=== PATIENT | male | born 1960 | race Caucasian/White ===

== ENCOUNTER 2020-09-16 07:14 | Emergency (ER) | payer BC, OTHER ==
--- NOTE | 2020-09-16 07:19 | EDM.PDOC ---
ED HPI GENERAL MEDICAL PROBLEM - General Stated Complaint: RT SHOULDER/ARM INJURY Time Seen by Provider: 09/16/20 07:16 Source of Information: Reports: Patient History Limitations: Reports: No Limitations - History of Present Illness INITIAL COMMENTS - FREE TEXT/NARRATIVE: 60-year-old male past medical history hypertension, alcohol abuse presents status post fall yesterday. Patient states that he was at work and he fell hitting his right sided ribs and right shoulder. He did hit his head but denies loss of consciousness. He was ambulatory after the fall. He has had no nausea or vomiting. Denies headache. He notes pain in his right anterior shoulder with limited range of motion secondary to pain. He also notes pain in his right-sided ribs which is worse with inspiration. He denies shortness of breath. No chest pain. He notes that he has not been taking his antihypertensives or other medications right shoulder Pain Score (Numeric/FACES): 7 - Related Data Allergies Allergy/AdvReac Type Severity Reaction Status Date / Time No Known Allergies Allergy Verified 09/16/20 07:36 Home Meds: Home Meds Aspirin [Aspirin EC] 81 mg PO DAILY 03/23/20 [History] Losartan [Cozaar] 100 mg PO DAILY 03/23/20 [History] Metoprolol Succinate [Toprol XL] 25 mg PO DAILY 03/23/20 [History] Nitroglycerin [Nitrostat] 0.4 mg SL ASDIRECTED 03/23/20 [History] Ondansetron [Zofran ODT] 4 mg PO Q6HR PRN 03/23/20 [History] amLODIPine [Norvasc] 5 mg PO DAILY 03/23/20 [History] Folic Acid 1 mg PO BEDTIME #60 tab 03/30/20 [Rx] Thiamine [Vitamin B-1] 100 mg PO BEDTIME #60 tab 03/30/20 [Rx] atorvaSTATin [Lipitor] 80 mg PO DAILY #0 03/30/20 [Rx] Past Medical History HEENT History: Reports: Impaired Vision, Other (See Below) Other HEENT History: wears glasses Cardiovascular History: Reports: High Cholesterol, Hypertension - Past Surgical History HEENT Surgical History: Reports: None Cardiovascular Surgical History: Reports: None Social & Family History - Family History Family Medical History: No Pertinent Family History - Caffeine Use Caffeine Use: Reports: Coffee, Soda ED ROS GENERAL - Review of Systems Review Of Systems: Comprehensive ROS is negative, except as noted in HPI. ED EXAM, GENERAL - Physical Exam Exam: See Below Exam Limited By: No Limitations General Appearance: Alert, WD/WN, No Apparent Distress Eye Exam: Bilateral Eye: EOMI, PERRL Throat/Mouth: Normal Voice, No Airway Compromise Head: Atraumatic, Normocephalic Neck: Normal Inspection, Non-Tender Respiratory/Chest: No Respiratory Distress, Lungs Clear, Normal Breath Sounds, No Accessory Muscle Use, Other (TTP of right anterolateral ribs) Cardiovascular: Normal Peripheral Pulses, Regular Rate, Rhythm Back Exam: Normal Inspection. 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) Neurological: Alert, Normal Gait Psychiatric: Normal Affect, Normal Mood Skin Exam: Warm, Dry, Intact, Normal Color Course - Vital Signs Last Recorded V/S: Last Vital Signs Temp 98 F 09/16/20 07:33 Pulse 93 09/16/20 09:02 Resp 16 09/16/20 07:33 BP 149/98 H 09/16/20 09:02 Pulse Ox 98 09/16/20 09:02 - Orders/Labs/Meds Orders: Active Orders 24 hr Category Date Time Status DME for Discharge [COMM] Stat Oth 09/16/20 09:05 Ordered Meds: Medications Discontinued Medications Generic Name Dose Route Start Last Admin Trade Name Elioq PRN Reason Stop Dose Admin Acetaminophen 1,000 mg 09/16/20 07:32 09/16/20 07:41 Acetaminophen 500 Mg Tab PO 09/16/20 07:33 1,000 mg ONETIME ONE Administration Ketorolac Tromethamine 30 mg 09/16/20 07:32 09/16/20 07:42 Ketorolac 30 Mg/Ml Sdv IM 09/16/20 07:33 30 mg ONETIME ONE Administration Losartan Potassium 100 mg 09/16/20 07:33 09/16/20 07:45 Losartan 50 Mg Tab PO 09/16/20 07:34 100 mg ONETIME ONE Administration Metoprolol Succinate 25 mg 09/16/20 07:37 09/16/20 07:46 Metoprolol Succinate 25 Mg Tab.Er PO 09/16/20 07:38 25 mg ONETIME ONE Administration - Re-Assessments/Exams Free Text/Narrative Re-Assessment/Exam: 09/16/20 07:35 We will get right-sided rib x-rays, will get right shoulder x-ray. Will treat symptomatically with Toradol and Tylenol. Explained to patient that if we do not see any abnormality on x-ray imaging he may need an MRI of the shoulder. Will give losartan and metoprolol as patient hasn't been on home meds and is hypertensive and mildly tachycardic to low 100s. 09/16/20 09:06 X-ray imaging is unremarkable. Will discharge with sling for comfort and analgesia. Will refer to orthopedic. Departure - Departure Time of Disposition: 09:06 Disposition: Home, Self-Care 01 Condition: Good Clinical Impression: Shoulder injury Qualifiers: Encounter type: initial encounter Laterality: right Qualified Code(s): S49.91XA - Unspecified injury of right shoulder and upper arm, initial encounter Rib contusion Qualifiers: Encounter type: initial encounter Laterality: right Qualified Code(s): S20.211A - Contusion of right front wall of thorax, initial encounter - Discharge Information Instructions: How To Use a Sling, [id number] Referrals: Tobin Vu MD [Primary Care Provider] - Additional Instructions: Your x-ray imaging is unremarkable for fracture or dislocation. It is possible that you could have torn a ligament or rotator cuff muscle in the shoulder. If your symptoms are not improving in the next week then I would follow-up with an orthopedic physician. Information is provided below. I have sent pain medicine to your pharmacy. [facility] [address], [address] [place] [address] The following information is given to patients seen in the emergency department who are being discharged to home. This information is to outline your options for follow-up care. We provide all patients seen in our emergency department with a follow-up referral. The need for follow-up, as well as the timing and circumstances, are variable depending upon the specifics of your emergency department visit. If you don't have a primary care physician on staff, we will provide you with a referral. We always advise you to contact your personal physician following an emergency department visit to inform them of the circumstance of the visit and for follow-up with them and/or the need for any referrals to a consulting specialist. The emergency department will also refer you to a specialist when appropriate. This referral assures that you have the opportunity for follow-up care with a specialist. All of these measure are taken in an effort to provide you with optimal care, which includes your follow-up. Under all circumstances we always encourage you to contact your private physician who remains a resource for coordinating your care. When calling for follow-up care, please make the office aware that this follow-up is from your recent emergency room visit. If for any reason you are refused follow-up, please contact the [facility] Emergency Department at and asked to speak to the emergency department charge nurse. Please follow up with your primary care physician. If you do not have a primary care physician, see below: [facility] [address] [place] [id number] [facility] [address] [place] [id number] [facility] [address] [place] [id number] Sepsis Event Note (ED) - Focused Exam Vital Signs: Vital Signs Temp Pulse Pulse Resp BP BP Pulse Ox 09/16/20 09:02 93 149/98 H 98 09/16/20 08:18 98 178/96 H 97 09/16/20 07:49 98 09/16/20 07:46 106 H 179/108 H 09/16/20 07:45 179/108 H 09/16/20 07:33 98 F 106 H 16 171/111 H 99 - My Orders Last 24 Hours: My Active Orders 09/16/20 09:05 DME for Discharge [COMM] Stat - Assessment/Plan Last 24 Hours: My Active Orders 09/16/20 09:05 DME for Discharge [COMM] Stat
[2020-09-16] MEDS ORDERED: Ketorolac 30 MG/ML SDV IM ONE (07:32)
[2020-09-16] MEDS ORDERED: Acetaminophen 500 MG Tab PO ONE (07:32)
[2020-09-16] MEDS ORDERED: Losartan 50 MG Tab PO ONE (07:33)
[2020-09-16] MEDS ORDERED: Metoprolol Succinate 25 MG Tab.ER PO ONE (07:37)
--- NOTE | 2020-09-16 09:03 | CR ---
INDICATION: Right shoulder injury. Fell yesterday. TECHNIQUE: Three views of the right shoulder. COMPARISON: Today`s rib x-rays. FINDINGS: No fracture or dislocation. IMPRESSION: Negative right shoulder. Dictated by Claudio Foster MD @ 09/16/2020 9:02:[address] Claudio Foster @ Sep 16 2020 9:02AM
--- NOTE | 2020-09-16 09:03 | CR ---
INDICATION: Fell yesterday. Right rib and shoulder pain. INDICATION: Left rib pain. TECHNIQUE: PA image of the chest and two views of both sets of ribs, 5 images. COMPARISON: None. FINDINGS: No rib fracture evident. Lungs and pleural spaces clear. Heart size and pulmonary vasculature within normal limits. IMPRESSION: Negative ribs. Dictated by Claudio Foster MD @ 09/16/2020 9:01:[address] Claudio Foster @ Sep 16 2020 9:01AM
== END 2020-09-16 09:18 | disposition home or self-care (01) ==
LOC: MW.ED 07:14
DX: S20.211A Contusion of right front wall of thorax, initial encounter (principal); S49.91XA Unspecified injury of right shoulder and upper arm, initial encounter; E78.00 Pure hypercholesterolemia, unspecified; I10 Essential (primary) hypertension; Z79.899 Other long term (current) drug therapy; W18.09XA Striking against other object with subsequent fall, initial encounter; Y92.009 Unspecified place in unspecified non-institutional (private) residence as the place of occurrence of the external cause
CPT/HCPCS: 71111; 73030; 96372; 99283; A9270; J1885

== ENCOUNTER 2020-10-05 10:59 | Emergency (ER) | payer SELFPAY ==
[2020-10-05] MEDS ORDERED: Sodium Chloride 0.9% 10 ML Syringe FLUSH PRN (11:08)
[2020-10-05] MEDS ORDERED: Sodium Chloride 0.9% 2.5 ML Syringe FLUSH PRN (11:08)
[2020-10-05] MEDS ORDERED: Sodium Chloride 0.9% 1,000 ML IV ONE (11:08)
[2020-10-05] MEDS ORDERED: Cefepime 2 GM in Sodium Chloride 0.9% 50 ML IV ONE (11:08)
[2020-10-05] MEDS ORDERED: Ibuprofen 600 MG Tab PO ONE (11:33)
[2020-10-05 11:59] LABS: BLOOD UREA NITROGEN,BUN 71 mg/dL (7.0-18.0); CARBON DIOXIDE,CO2 14.8 mmol/L (21.0-32.0); CHLORIDE,CL 100 mmol/L (98-107); GLUCOSE RANDOM 136 mg/dL (74-106); LIPASE 330 U/L (73-393); POTASSIUM,K 5.3 mmol/L (3.5-5.1); SODIUM,NA 142 mmol/L (136-148)
[2020-10-05] MEDS ORDERED: Cefepime 2 GM in Premix Bag 1 BAG IV ONE (12:00)
--- NOTE | 2020-10-05 12:38 | CT ---
INDICATION: Patient found down TECHNIQUE: Head CT without contrast. COMPARISON: March 23, 2020 FINDINGS: CSF spaces: Within normal limits for age. Brain parenchyma: There are nonspecific low attenuation white matter changes consistent with chronic microvascular disease. No sign of mass, hemorrhage, or midline shift. Skull base and calvarium: Patchy opacification of the bilateral maxillary sinuses. The mastoid air cells demonstrate no acute or significant findings. The visualized orbits are grossly unremarkable. No skull fractures. There is intracranial atherosclerosis. IMPRESSION: 1. No acute findings. 2. Nonspecific white matter disease, typical of chronic microvascular disease. Please note that all CT scans at this facility use dose modulation, iterative reconstruction, and/or weight-based dosing when appropriate to reduce radiation dose to as low as reasonably achievable. Dictated by Марина Rao MD @ 10/05/2020 12:36:[address] Марина Rao @ Oct 05 2020 12:36PM
--- NOTE | 2020-10-05 12:38 | CR ---
Indication: Decreased responsiveness Technique: Chest 1 view Comparison: September 16, 2020 Findings/Impression: Cardiovascular and mediastinum: Heart size and vasculature are normal in caliber and appearance. Mediastinum is within normal limits. Lungs and pleural space: Linear atelectasis in the right upper lung. No sign of infiltrate or mass. No sign of pleural effusion. No pneumothorax. Bones and soft tissues: No significant findings. Dictated by Марина Rao MD @ 10/05/2020 12:37:[address] Марина Rao @ Oct 05 2020 12:37PM
--- NOTE | 2020-10-05 12:42 | CT ---
INDICATION: Patient found down TECHNIQUE: CT cervical spine without contrast. COMPARISON: March 23, 2020 FINDINGS: Vertebral alignment: Alignment is normal. Vertebrae: There are no fractures or suspicious bony lesions. Discs and facet joints: There are moderate multilevel degenerative disc and facet changes. Extraspinal findings: Paraspinous soft tissues are unremarkable. IMPRESSION: 1. No sign of acute injury. 2. Multilevel degenerative spondylosis. Please note that all CT scans at this facility use dose modulation, iterative reconstruction, and/or weight-based dosing when appropriate to reduce radiation dose to as low as reasonably achievable. Dictated by Марина Rao MD @ 10/05/2020 12:41:[address] Марина Rao @ Oct 05 2020 12:41PM
[2020-10-05] MEDS ORDERED: Magnesium Sulfate (4.06 MEQ/ML) 5 GM/10 ML SDV IV STA (13:04)
[2020-10-05] MEDS ORDERED: Lactated Ringers 1,000 ML IV SCH (13:15)
[2020-10-05] MEDS ORDERED: Magnesium Sulfate/Water 2 GM/50 ML BAG IV ONE (13:15)
--- NOTE | 2020-10-05 13:42 | EDM.PDOC ---
ED HPI GENERAL MEDICAL PROBLEM - General Chief Complaint: Drug or Alcohol Abuse Stated Complaint: alcohol abuse Time Seen by Provider: 10/05/20 11:10 - History of Present Illness INITIAL COMMENTS - FREE TEXT/NARRATIVE: CHIEF COMPLAINT(S): Found down HISTORY OF PRESENT ILLNESS: This is a 60-year-old man with a past medical history of alcohol use disorder who presents to the emergency department as a medical resuscitation via EMS with a chief complaint of found down. Per EMS: The patient's landlord contacted EMS as the landlord found the patient lying facedown in his camper this morning. Is uncertain as to why he was on the ground but the patient denies any falling. Upon EMS arrival the patient was satting 92% therefore they did place oxygen on the patient and brought him to the emergency department. The patient currently denies any symptoms and does not remember falling. He states that he just laid down because he was not feeling well. He states that he did not have any preceding chest pain or shortness of breath. He states that he currently is not experiencing any chest pain, shortness of breath, cough, abdominal pain, nausea or vomiting. He denies any hematemesis, bilious emesis, melena or hematochezia. He denies any use of oral anticoagulation. He denies any head injury or loss of consciousness. He denies any blurry vision, double vision, loss of vision. REVIEW OF SYSTEMS: Constitutional: Denies fever, chills. Eyes: Denies eye pain Ears, Nose, Mouth, & Throat: Denies earache Cardiovascular: Denies chest pain Respiratory: Denies shortness of breath Gastrointestinal: Denies Nausea, vomiting, diarrhea, hematochezia. Genitourinary: Denies hematuria Skin:Denies a rash Neurological: Denies blurred vision, headache, numbness, tingling, weakness Psychiatric: Denies depression PAST MEDICAL HISTORY: As per history of present illness and as reviewed below otherwise noncontributory. SURGICAL HISTORY: As per history of present illness and as reviewed below otherwise noncontributory. SOCIAL HISTORY: As per history of present illness and as reviewed below otherwise noncontributory. FAMILY HISTORY: As per history of present illness and as reviewed below otherwise noncontributory. EXAMINATION OF ORGAN SYSTEMS/BODY AREAS: VITALS: Blood pressure is 146/105, heart rate 122, respiratory rate 20 with an oxygen saturation of 100% on 15 L nonrebreather. Rectal temperature was 40.7. GENERAL: This is a middle-aged man who appears pale and in moderate respiratory distress. HEAD: Normocephalic, atraumatic. EYES: EOMs intact. PERRL. No vertical or horizontal nystagmus. ENT. External ears WNL. Nares patent. Oropharynx is clear with no erythema or exudate. No uvular or tongue swelling. Dry mucous membranes. NECK: Supple, no masses. Trachea is midline. LUNGS: The patient is tachypneic however he is speaking in full sentences. There is no stridor, wheezing, rales, rhonchi. Clear lung sounds bilaterally. CARDIOVASCULAR: Tachycardic but regular. No murmurs, rubs, gallops. No edema. No JVD. Bilateral radial pulses palpable and equal. Bilateral posterior tibial pulses dopplerable. Capillary refill is prolonged in upper and lower extremities bilaterally greater than 4 seconds ABDOMEN: Soft, non-distended, non-tender. Bowel sounds present in all 4 quadrants. No rebound tenderness, guarding, or peritoneal signs. MUSCULOSKELETAL: No deformity. Patient is moving all 4 limbs spontaneously. NEUROLOGICAL: Alert and oriented x 3. No focal neurological deficits noted. SKIN: The patient has bruising located throughout his body which is especially prevalent on his bilateral knees, left lower extremity on the lateral side, right lower extremity and anterior abdominal wall. The patient skin is warm. No evidence of petechiae. No sacral decubitus ulcers. MEDICAL DECISION MAKING AND COURSE IN THE ED WITH INTERPRETATION/REVIEW OF DIAGNOSTIC STUDIES: This is a 60-year-old man who presents to the emergency department as a medical resuscitation via EMS with acute hypoxic respiratory failure who is tachycardic, febrile and hypoxic per EMS. Immediately upon entering the resuscitation room the patient was disrobed, placed on continuous cardiac monitoring, and IV access was established by nursing. Patient is able to speak thus displaying a patent airway, breath sounds are equal bilaterally, and patient has palpable pulses in bilateral upper extremities with dopplerable pulses in his bilateral lower extremities with some bruising. I do believe the patient is peripherally vasoconstricted likely secondary to sepsis, presumably pneumonia given the hypoxia. At this time we will obtain a septic work-up including CBC, CMP, lactic acid, urinalysis, chest x-ray. We will provide the patient with 1 L of normal saline bolus at this time, 600 mg of Motrin for f ever, and start the patient on cefepime and vancomycin after blood cultures. At this time the patient's blood pressure is normal I do not believe 30 cc/kg is indicated. We will reevaluate after lactic acid is resulted. In addition to this given the bruising will obtain fibrinogen, D-dimer, and coags to evaluate for possible DIC. We will obtain a CPK given the patient was found down to evaluate for rhabdomyolysis. Will obtain an ABG given the hypoxia. EKG was obtained which revealed sinus tachycardia without any peaked T waves or QRS widening. We will place the patient on threat monitoring analyst and pulse oximetry. desk monitor did reveal sinus tachycardia, pulse oximetry with good waveform was 100% via nonrebreather. Given the patient was found down we will obtain a CT head without contrast and a CT cervical spine. Laboratory: CBC reveals a leukocytosis of 14.03 with neutrophilic predominance without any segmented neutrophils, elevated hemoglobin at 18.5, hematocrit of 53.6, macrocytosis with an MCV of 103.1. There is thrombocytopenia at 129. CMP reveals hyperkalemia with a potassium of 5.3, metabolic acidosis with a bicarbonate of 14.8, acute renal failure with a BUN of 71 and a creatinine of 7.6, hyperglycemia at 136, hyperbilirubinemia at 1.2 and a transaminitis of 692 AST, 206 ALT likely secondary to rhabdomyolysis. CPK is elevated at 34,255. Lipase is normal. Troponin is positive at 0.722. UDS is negative. Serum alcohol is negative. D-dimer is elevated at 3.25. Fibrinogen is elevated at 498, INR is 0.98. AB.27//83/10 acute metabolic acidosis with appropriate respiratory compensation At this time the patient's lactate is not greater than 4 and his blood pressure continues to remain stable therefore no additional fluid boluses will be given. We will start the patient on lactated Ringer's at 125 an hour given the acute renal failure. We will place a Holguin catheter to evaluate for urine output. At this time the patient does have bruising with an elevated troponin, hypoxia with an elevated D-dimer differential does include pulmonary embolism, DIC. We did perform a bedside guaiac on the stool which was black and positive. At this time I do believe the patients elevated troponin is likely secondary to acute renal failure, rhabdomyolysis, and type II LA, and the benefits of anticoagulation at this time do not outweigh the risks. We will hold off on aspirin and heparin at this time. Holguin catheter was placed and approximately 10 cc of concentrated urine was obtained. Urinalysis was a clean catch and was negative for leukocyte esterase, negative for nitrites, and positive for blood. RBCs 0-2 interpretation: Myoglobinuria The radiological images were viewed by myself along with reading the report from the radiologist. Chest x-ray does not reveal any acute cardiopulmonary process. CT head without contrast does not reveal any acute intracranial abnormality. CT cervical spine does not reveal any acute fracture or dislocation. At this time it is uncertain as to the cause of the patient's sepsis differential also includes heat exhaustion given his temperature, rhabdomyolysis and dehydration. On reevaluation post fluid bolus, the patient's DP pulses were palpable, he was no longer pale, his heart rate improved to 109, respiratory rate was normal and we did wean the patient off oxygen to room air saturating 93 to 94%. Blood pressure continued to remain stable. I did discuss with the patient that given his acute renal failure, elevated troponin, and bleeding I would like to transfer him given that we do not have nephrology, gastroenterology, or cardiology. He was amenable to this plan. In addition he informed me that him and his friends were playing [employer] and crawling in the bushes and that is probably why he has the bruising. I contacted [facility] in [place] and spoke with Dr. Morales who accepted the patient for transfer. The patient will be transferred via ALS. Given the hyperkalemia I did repeat the patient's EKG. The patient did not have any signs of QRS widening or peaked T waves. Covid is negative DISPOSITION: The patient was transferred to [facility] in [place] in stable yet serious condition CONDITION: Serious PROCEDURES: Cardiac monitoring interpretation, pulse oximetry interpretation FINAL IMPRESSION(S)/DIAGNOSES: 1. Acute hypoxic respiratory failure secondary to unknown etiology, possible pulmonary embolism 2. Acute sepsis secondary to unknown source 3. Acute renal failure likely secondary to rhabdomyolysis 4. Acute elevated troponin, suspect type II demand ischemia versus renal failure versus rhabdomyolysis 5. Acute lactic acidosis likely secondary #1, #2. 6. Acute melena, suspect GI bleed 7. Acute possible DIC Critical Care Procedure Note Authorized and performed by: David Watters M.D. Critical Care Time: 90 minutes Due to a high probability of clinically significant, life threatening deterioration, the patient required my highest level of preparedness to intervene emergently and I personally spent this critical care time directly and personally managing the patient. This critical care time included obtaining a history, examining the patient, pulse oximetry; ordering and review of studies; arranging urgent treatment with development of a management plan; evaluation of a patients reponse to treatment; frequent assessment; and discussions with other providers. This critical care time was performed to assess and manage the high probability of imminent, life threatening deterioration that could result in multiorgan failure. It was exclusive of separate billable procedures and treating other patients. Please see MDM section and rest of the note for further information on patient assessment and treatment. Please see MDM section and rest of the note for further information on patient assessment and treatment. - Related Data Allergies Allergy/AdvReac Type Severity Reaction Status Date / Time No Known Allergies Allergy Verified 10/05/20 11:30 Home Meds: Home Meds Aspirin [Aspirin EC] 81 mg PO DAILY 03/23/20 [History] Losartan [Cozaar] 100 mg PO DAILY 03/23/20 [History] Metoprolol Succinate [Toprol XL] 25 mg PO DAILY 03/23/20 [History] Nitroglycerin [Nitrostat] 0.4 mg SL ASDIRECTED 03/23/20 [History] Ondansetron [Zofran ODT] 4 mg PO Q6HR PRN 03/23/20 [History] amLODIPine [Norvasc] 5 mg PO DAILY 03/23/20 [History] Folic Acid 1 mg PO BEDTIME #60 tab 03/30/20 [Rx] Thiamine [Vitamin B-1] 100 mg PO BEDTIME #60 tab 03/30/20 [Rx] atorvaSTATin [Lipitor] 80 mg PO DAILY #0 03/30/20 [Rx] Ibuprofen [Motrin] 600 mg PO Q6H PRN #28 tab 09/16/20 [Rx] Past Medical History HEENT History: Reports: Impaired Vision, Other (See Below) Other HEENT History: wears glasses Cardiovascular History: Reports: High Cholesterol, Hypertension - Past Surgical History HEENT Surgical History: Reports: None Cardiovascular Surgical History: Reports: None Social & Family History - Family History Family Medical History: No Pertinent Family History - Caffeine Use Caffeine Use: Reports: Coffee, Soda - Recreational Drug Use Recreational Drug Use: No ED ROS GENERAL - Review of Systems Review Of Systems: See Below ED EXAM, GENERAL - Physical Exam Exam: See Below Course - Vital Signs Last Recorded V/S: Last Vital Signs Temp 38.7 C H 10/05/20 12:57 Pulse 100 10/05/20 13:09 Resp BP 136/94 H 10/05/20 13:09 Pulse Ox 94 L 10/05/20 13:09 - Orders/Labs/Meds Orders: Active Orders 24 hr Category Date Time Status Blood Pressure Mgt: Sepsis [RC] [id number] Care 10/05/20 11:08 Active Cardiac Monitoring [RC] CONTINUOUS Care 10/05/20 11:08 Active EKG 12 Lead [EKG Documentation Completion] [RC] STAT Care 10/05/20 12:28 Active EKG Documentation Completion [RC] STAT Care 10/05/20 11:08 Active Insert Holguin Catheter [Insert Urinary Catheter] [OM.PC] Care 10/05/20 12:15 Ordered Q24H Oxygen Therapy, ED [RC] STAT Care 10/05/20 11:08 Active Urinary Catheter Assessment [RC] ASDIRECTED Care 10/05/20 12:12 Active CULTURE BLOOD [BC] Stat Lab 10/05/20 11:17 Received CULTURE BLOOD [BC] Stat Lab 10/05/20 11:38 Received HAPTOGLOBIN [REF] Stat Lab 10/05/20 11:17 Received REFLEX LACTIC ACID YES OR NO [CHEM] Routine Lab 10/05/20 11:49 Received Lactated Ringers [Ringers, Lactated] 1,000 ml Med 10/05/20 13:15 Active IV ASDIRECTED Magnesium Sulfate/Water [Magnesium Sulfate in Water 2 Med 10/05/20 13:15 Active GM/50 ML] 2 gm in 50 ml IV ONETIME Sodium Chloride 0.9% [Saline Flush] Med 10/05/20 11:08 Active 10 ml FLUSH ASDIRECTED PRN Sodium Chloride 0.9% [Saline Flush] Med 10/05/20 11:08 Active 2.5 ml FLUSH ASDIRECTED PRN Blood Culture x2 Reflex Set [OM.PC] Stat Oth 10/05/20 11:08 Ordered Saline Lock Insert [OM.PC] Stat Oth 10/05/20 11:08 Ordered Medication Orders Lactated Ringer's (Ringers, Lactated) 1,000 mls @ 125 mls/hr IV ASDIRECTED VERONICA Last Admin: 10/05/20 13:21 Dose: 125 mls/hr Documented by: ARELY Magnesium Sulfate (Magnesium Sulfate In Water 2 Gm/50 Ml) 2 gm in 50 mls @ 50 mls/hr IV ONETIME ONE Stop: 10/05/20 14:14 Last Admin: 10/05/20 13:21 Dose: 50 mls/hr Documented by: ARELY Sodium Chloride (Sodium Chloride 0.9% 10 Ml Syringe) 10 ml FLUSH ASDIRECTED PRN PRN Reason: Keep Vein Open Last Admin: 10/05/20 12:21 Dose: 10 ml Documented by: ROCK Sodium Chloride (Sodium Chloride 0.9% 2.5 Ml Syringe) 2.5 ml FLUSH ASDIRECTED PRN PRN Reason: Keep Vein Open Last Admin: 10/05/20 12:21 Dose: 2.5 ml Documented by: RCOK Labs: Laboratory Tests 10/05/20 10/05/20 10/05/20 Range/Units 11:17 11:17 11:17 WBC 14.03 H (4.0-11.0) K/uL RBC 5.20 (4.50-5.90) M/uL Hgb 18.5 H (13.0-17.0) g/dL Hct 53.6 H (38.0-50.0) % MCV 103.1 H (80.0-98.0) fL MCH 35.6 H (27.0-32.0) pg MCHC 34.5 (31.0-37.0) g/dL RDW Std Deviation 54.0 (28.0-62.0) fl RDW Coeff of Shakeel 14 (11.0-15.0) % Plt Count 129 L (150-400) K/uL MPV 11.30 (7.40-12.00) fL Neut % (Auto) 84.5 H (48.0-80.0) % Lymph % (Auto) 5.5 L (16.0-40.0) % [place] % (Auto) 10.0 (0.0-15.0) % Eos % (Auto) 0.0 (0.0-7.0) % Baso % (Auto) 0.0 (0.0-1.5) % Neut # (Auto) 11.9 H (1.4-5.7) K/uL Lymph # (Auto) 0.8 (0.6-2.4) K/uL [place] # (Auto) 1.4 H (0.0-0.8) K/uL Eos # (Auto) 0.0 (0.0-0.7) K/uL Baso # (Auto) 0.0 (0.0-0.1) K/uL Nucleated RBC % 0.0 /100WBC Nucleated RBCs # 0 K/uL INR Fibrinogen (215-411) mg/dL D-Dimer, Quantitative (0.0-0.50) mg/L FEU ABG pH (7.35-7.45) ABG pCO2 (35-45) mmHG ABG pO2 (80-105) mmHG ABG HCO3 (22-26) mEq/L ABG Total CO2 (23-27) mmol/L ABG Base Excess (-2.0-3.0) Sodium 142 (136-148) mmol/L Potassium 5.3 H (3.5-5.1) mmol/L Chloride 100 (98-107) mmol/L Carbon Dioxide 14.8 L (21.0-32.0) mmol/L BUN 71 H (7.0-18.0) mg/dL Creatinine 7.6 H (0.8-1.3) mg/dL Est Cr Clr Drug Dosing 10.25 mL/min Estimated GFR (MDRD) 7.4 ml/min Glucose 136 H (74-106) mg/dL Lactic Acid 2.7 H* (0.4-2.0) mmol/L Calcium 9.6 (8.5-10.1) mg/dL Magnesium (1.8-2.4) mg/dL Total Bilirubin 1.2 H (0.2-1.0) mg/dL AST 692 H (15-37) IU/L ALT 206 H (14-63) IU/L Alkaline Phosphatase 113 (46-116) U/L Creatine Kinase 85573 H (26-308) U/L Troponin I 0.722 H* (0.000-0.056) ng/mL Total Protein 9.4 H (6.4-8.2) g/dL Albumin 4.7 (3.4-5.0) g/dL Globulin 4.7 H (2.6-4.0) g/dL Albumin/Globulin Ratio 1.0 (0.9-1.6) Lipase 330 (73-393) U/L Urine Color Urine Appearance Urine pH (5.0-8.0) Ur Specific [place] (1.001-1.035) Urine Protein (NEGATIVE) mg/dL Urine Glucose (UA) (NEGATIVE) mg/dL Urine Ketones (NEGATIVE) mg/dL Urine Occult Blood (NEGATIVE) Urine Nitrite (NEGATIVE) Urine Bilirubin (NEGATIVE) Urine Ictotest Urine Urobilinogen (<2.0) EU/dL Ur Leukocyte Esterase (NEGATIVE) Urine RBC (0-2/HPF) Urine WBC (0-5/HPF) Ur Epithelial Cells (NONE-FEW) Amorphous Sediment (NEGATIVE) Urine Bacteria (NEGATIVE) Urine Mucus (NONE-MOD) Urine Opiates Screen (NEGATIVE) Ur Oxycodone Screen (NEGATIVE) Urine Methadone Screen (NEGATIVE) Ur Barbiturates Screen (NEGATIVE) Ur Phencyclidine Scrn (NEGATIVE) Ur Amphetamine Screen (NEGATIVE) U Methamphetamines Scrn (NEGATIVE) U Benzodiazepines Scrn (NEGATIVE) U Cocaine Metab Screen (NEGATIVE) U Marijuana (THC) Screen (NEGATIVE) Ethyl Alcohol <3 mg/dL SARS-CoV-2 RNA (RADHA) (NEGATIVE) Blood Type Antibody Screen 10/05/20 10/05/20 10/05/20 Range/Units 11:17 11:17 11:17 WBC (4.0-11.0) K/uL RBC (4.50-5.90) M/uL Hgb (13.0-17.0) g/dL Hct (38.0-50.0) % MCV (80.0-98.0) fL MCH (27.0-32.0) pg MCHC (31.0-37.0) g/dL RDW Std Deviation (28.0-62.0) fl RDW Coeff of Shakeel (11.0-15.0) % Plt Count (150-400) K/uL MPV (7.40-12.00) fL Neut % (Auto) (48.0-80.0) % Lymph % (Auto) (16.0-40.0) % [place] % (Auto) (0.0-15.0) % Eos % (Auto) (0.0-7.0) % Baso % (Auto) (0.0-1.5) % Neut # (Auto) (1.4-5.7) K/uL Lymph # (Auto) (0.6-2.4) K/uL [place] # (Auto) (0.0-0.8) K/uL Eos # (Auto) (0.0-0.7) K/uL Baso # (Auto) (0.0-0.1) K/uL Nucleated RBC % /100WBC Nucleated RBCs # K/uL INR 0.98 Fibrinogen 498 H (215-411) mg/dL D-Dimer, Quantitative 3.25 H (0.0-0.50) mg/L FEU ABG pH (7.35-7.45) ABG pCO2 (35-45) mmHG ABG pO2 (80-105) mmHG ABG HCO3 (22-26) mEq/L ABG Total CO2 (23-27) mmol/L ABG Base Excess (-2.0-3.0) Sodium (136-148) mmol/L Potassium (3.5-5.1) mmol/L Chloride (98-107) mmol/L Carbon Dioxide (21.0-32.0) mmol/L BUN (7.0-18.0) mg/dL Creatinine (0.8-1.3) mg/dL Est Cr Clr Drug Dosing mL/min Estimated GFR (MDRD) ml/min Glucose (74-106) mg/dL Lactic Acid (0.4-2.0) mmol/L Calcium (8.5-10.1) mg/dL Magnesium (1.8-2.4) mg/dL Total Bilirubin (0.2-1.0) mg/dL AST (15-37) IU/L ALT (14-63) IU/L Alkaline Phosphatase (46-116) U/L Creatine Kinase (26-308) U/L Troponin I (0.000-0.056) ng/mL Total Protein (6.4-8.2) g/dL Albumin (3.4-5.0) g/dL Globulin (2.6-4.0) g/dL Albumin/Globulin Ratio (0.9-1.6) Lipase (73-393) U/L Urine Color Urine Appearance Urine pH (5.0-8.0) Ur Specific [place] (1.001-1.035) Urine Protein (NEGATIVE) mg/dL Urine Glucose (UA) (NEGATIVE) mg/dL Urine Ketones (NEGATIVE) mg/dL Urine Occult Blood (NEGATIVE) Urine Nitrite (NEGATIVE) Urine Bilirubin (NEGATIVE) Urine Ictotest Urine Urobilinogen (<2.0) EU/dL Ur Leukocyte Esterase (NEGATIVE) Urine RBC (0-2/HPF) Urine WBC (0-5/HPF) Ur Epithelial Cells (NONE-FEW) Amorphous Sediment (NEGATIVE) Urine Bacteria (NEGATIVE) Urine Mucus (NONE-MOD) Urine Opiates Screen (NEGATIVE) Ur Oxycodone Screen (NEGATIVE) Urine Methadone Screen (NEGATIVE) Ur Barbiturates Screen (NEGATIVE) Ur Phencyclidine Scrn (NEGATIVE) Ur Amphetamine Screen (NEGATIVE) U Methamphetamines Scrn (NEGATIVE) U Benzodiazepines Scrn (NEGATIVE) U Cocaine Metab Screen (NEGATIVE) U Marijuana (THC) Screen (NEGATIVE) Ethyl Alcohol mg/dL SARS-CoV-2 RNA (RADHA) (NEGATIVE) Blood Type Antibody Screen 10/05/20 10/05/20 10/05/20 Range/Units 11:17 11:44 12:15 WBC (4.0-11.0) K/uL RBC (4.50-5.90) M/uL Hgb (13.0-17.0) g/dL Hct (38.0-50.0) % MCV (80.0-98.0) fL MCH (27.0-32.0) pg MCHC (31.0-37.0) g/dL RDW Std Deviation (28.0-62.0) fl RDW Coeff of Shakeel (11.0-15.0) % Plt Count (150-400) K/uL MPV (7.40-12.00) fL Neut % (Auto) (48.0-80.0) % Lymph % (Auto) (16.0-40.0) % [place] % (Auto) (0.0-15.0) % Eos % (Auto) (0.0-7.0) % Baso % (Auto) (0.0-1.5) % Neut # (Auto) (1.4-5.7) K/uL Lymph # (Auto) (0.6-2.4) K/uL [place] # (Auto) (0.0-0.8) K/uL Eos # (Auto) (0.0-0.7) K/uL Baso # (Auto) (0.0-0.1) K/uL Nucleated RBC % /100WBC Nucleated RBCs # K/uL INR Fibrinogen (215-411) mg/dL D-Dimer, Quantitative (0.0-0.50) mg/L FEU ABG pH 7.27 L (7.35-7.45) ABG pCO2 23 L (35-45) mmHG ABG pO2 83 (80-105) mmHG ABG HCO3 10 L (22-26) mEq/L ABG Total CO2 9.1 L (23-27) mmol/L ABG Base Excess -14.1 L (-2.0-3.0) Sodium (136-148) mmol/L Potassium (3.5-5.1) mmol/L Chloride (98-107) mmol/L Carbon Dioxide (21.0-32.0) mmol/L BUN (7.0-18.0) mg/dL Creatinine (0.8-1.3) mg/dL Est Cr Clr Drug Dosing mL/min Estimated GFR (MDRD) ml/min Glucose (74-106) mg/dL Lactic Acid (0.4-2.0) mmol/L Calcium (8.5-10.1) mg/dL Magnesium 2.9 H (1.8-2.4) mg/dL Total Bilirubin (0.2-1.0) mg/dL AST (15-37) IU/L ALT (14-63) IU/L Alkaline Phosphatase (46-116) U/L Creatine Kinase (26-308) U/L Troponin I (0.000-0.056) ng/mL Total Protein (6.4-8.2) g/dL Albumin (3.4-5.0) g/dL Globulin (2.6-4.0) g/dL Albumin/Globulin Ratio (0.9-1.6) Lipase (73-393) U/L Urine Color Urine Appearance Urine pH (5.0-8.0) Ur Specific [place] (1.001-1.035) Urine Protein (NEGATIVE) mg/dL Urine Glucose (UA) (NEGATIVE) mg/dL Urine Ketones (NEGATIVE) mg/dL Urine Occult Blood (NEGATIVE) Urine Nitrite (NEGATIVE) Urine Bilirubin (NEGATIVE) Urine Ictotest Urine Urobilinogen (<2.0) EU/dL Ur Leukocyte Esterase (NEGATIVE) Urine RBC (0-2/HPF) Urine WBC (0-5/HPF) Ur Epithelial Cells (NONE-FEW) Amorphous Sediment (NEGATIVE) Urine Bacteria (NEGATIVE) Urine Mucus (NONE-MOD) Urine Opiates Screen (NEGATIVE) Ur Oxycodone Screen (NEGATIVE) Urine Methadone Screen (NEGATIVE) Ur Barbiturates Screen (NEGATIVE) Ur Phencyclidine Scrn (NEGATIVE) Ur Amphetamine Screen (NEGATIVE) U Methamphetamines Scrn (NEGATIVE) U Benzodiazepines Scrn (NEGATIVE) U Cocaine Metab Screen (NEGATIVE) U Marijuana (THC) Screen (NEGATIVE) Ethyl Alcohol mg/dL SARS-CoV-2 RNA (RADHA) (NEGATIVE) Blood Type O NEGATIVE Antibody Screen NEGATIVE 10/05/20 10/05/20 10/05/20 Range/Units 12:30 12:30 12:55 WBC (4.0-11.0) K/uL RBC (4.50-5.90) M/uL Hgb (13.0-17.0) g/dL Hct (38.0-50.0) % MCV (80.0-98.0) fL MCH (27.0-32.0) pg MCHC (31.0-37.0) g/dL RDW Std Deviation (28.0-62.0) fl RDW Coeff of Shakeel (11.0-15.0) % Plt Count (150-400) K/uL MPV (7.40-12.00) fL Neut % (Auto) (48.0-80.0) % Lymph % (Auto) (16.0-40.0) % [place] % (Auto) (0.0-15.0) % Eos % (Auto) (0.0-7.0) % Baso % (Auto) (0.0-1.5) % Neut # (Auto) (1.4-5.7) K/uL Lymph # (Auto) (0.6-2.4) K/uL [place] # (Auto) (0.0-0.8) K/uL Eos # (Auto) (0.0-0.7) K/uL Baso # (Auto) (0.0-0.1) K/uL Nucleated RBC % /100WBC Nucleated RBCs # K/uL INR Fibrinogen (215-411) mg/dL D-Dimer, Quantitative (0.0-0.50) mg/L FEU ABG pH (7.35-7.45) ABG pCO2 (35-45) mmHG ABG pO2 (80-105) mmHG ABG HCO3 (22-26) mEq/L ABG Total CO2 (23-27) mmol/L ABG Base Excess (-2.0-3.0) Sodium (136-148) mmol/L Potassium (3.5-5.1) mmol/L Chloride (98-107) mmol/L Carbon Dioxide (21.0-32.0) mmol/L BUN (7.0-18.0) mg/dL Creatinine (0.8-1.3) mg/dL Est Cr Clr Drug Dosing mL/min Estimated GFR (MDRD) ml/min Glucose (74-106) mg/dL Lactic Acid (0.4-2.0) mmol/L Calcium (8.5-10.1) mg/dL Magnesium (1.8-2.4) mg/dL Total Bilirubin (0.2-1.0) mg/dL AST (15-37) IU/L ALT (14-63) IU/L Alkaline Phosphatase (46-116) U/L Creatine Kinase (26-308) U/L Troponin I (0.000-0.056) ng/mL Total Protein (6.4-8.2) g/dL Albumin (3.4-5.0) g/dL Globulin (2.6-4.0) g/dL Albumin/Globulin Ratio (0.9-1.6) Lipase (73-393) U/L Urine Color YELLOW Urine Appearance CLOUDY Urine pH 5.0 (5.0-8.0) Ur Specific [place] >= 1.030 (1.001-1.035) Urine Protein 100 H (NEGATIVE) mg/dL Urine Glucose (UA) NEGATIVE (NEGATIVE) mg/dL Urine Ketones TRACE H (NEGATIVE) mg/dL Urine Occult Blood LARGE H (NEGATIVE) Urine Nitrite NEGATIVE (NEGATIVE) Urine Bilirubin MODERATE H (NEGATIVE) Urine Ictotest NEGATIVE Urine Urobilinogen 0.2 (<2.0) EU/dL Ur Leukocyte Esterase NEGATIVE (NEGATIVE) Urine RBC 0-2 (0-2/HPF) Urine WBC 0-1 (0-5/HPF) Ur Epithelial Cells RARE (NONE-FEW) Amorphous Sediment LIGHT (NEGATIVE) Urine Bacteria 3+ H (NEGATIVE) Urine Mucus LIGHT (NONE-MOD) Urine Opiates Screen NEGATIVE (NEGATIVE) Ur Oxycodone Screen NEGATIVE (NEGATIVE) Urine Methadone Screen NEGATIVE (NEGATIVE) Ur Barbiturates Screen NEGATIVE (NEGATIVE) Ur Phencyclidine Scrn NEGATIVE (NEGATIVE) Ur Amphetamine Screen NEGATIVE (NEGATIVE) U Methamphetamines Scrn NEGATIVE (NEGATIVE) U Benzodiazepines Scrn NEGATIVE (NEGATIVE) U Cocaine Metab Screen NEGATIVE (NEGATIVE) U Marijuana (THC) Screen NEGATIVE (NEGATIVE) Ethyl Alcohol mg/dL SARS-CoV-2 RNA (RADHA) NEGATIVE (NEGATIVE) Blood Type Antibody Screen 10/05/20 Range/Units 13:15 WBC (4.0-11.0) K/uL RBC (4.50-5.90) M/uL Hgb (13.0-17.0) g/dL Hct (38.0-50.0) % MCV (80.0-98.0) fL MCH (27.0-32.0) pg MCHC (31.0-37.0) g/dL RDW Std Deviation (28.0-62.0) fl RDW Coeff of Shakeel (11.0-15.0) % Plt Count (150-400) K/uL MPV (7.40-12.00) fL Neut % (Auto) (48.0-80.0) % Lymph % (Auto) (16.0-40.0) % [place] % (Auto) (0.0-15.0) % Eos % (Auto) (0.0-7.0) % Baso % (Auto) (0.0-1.5) % Neut # (Auto) (1.4-5.7) K/uL Lymph # (Auto) (0.6-2.4) K/uL [place] # (Auto) (0.0-0.8) K/uL Eos # (Auto) (0.0-0.7) K/uL Baso # (Auto) (0.0-0.1) K/uL Nucleated RBC % /100WBC Nucleated RBCs # K/uL INR Fibrinogen (215-411) mg/dL D-Dimer, Quantitative (0.0-0.50) mg/L FEU ABG pH 7.29 L (7.35-7.45) ABG pCO2 22 L (35-45) mmHG ABG pO2 75 L (80-105) mmHG ABG HCO3 10 L (22-26) mEq/L ABG Total CO2 11 L (23-27) mmol/L ABG Base Excess -14.0 L (-2.0-3.0) Sodium (136-148) mmol/L Potassium (3.5-5.1) mmol/L Chloride (98-107) mmol/L Carbon Dioxide (21.0-32.0) mmol/L BUN (7.0-18.0) mg/dL Creatinine (0.8-1.3) mg/dL Est Cr Clr Drug Dosing mL/min Estimated GFR (MDRD) ml/min Glucose (74-106) mg/dL Lactic Acid (0.4-2.0) mmol/L Calcium (8.5-10.1) mg/dL Magnesium (1.8-2.4) mg/dL Total Bilirubin (0.2-1.0) mg/dL AST (15-37) IU/L ALT (14-63) IU/L Alkaline Phosphatase (46-116) U/L Creatine Kinase (26-308) U/L Troponin I (0.000-0.056) ng/mL Total Protein (6.4-8.2) g/dL Albumin (3.4-5.0) g/dL Globulin (2.6-4.0) g/dL Albumin/Globulin Ratio (0.9-1.6) Lipase (73-393) U/L Urine Color Urine Appearance Urine pH (5.0-8.0) Ur Specific [place] (1.001-1.035) Urine Protein (NEGATIVE) mg/dL Urine Glucose (UA) (NEGATIVE) mg/dL Urine Ketones (NEGATIVE) mg/dL Urine Occult Blood (NEGATIVE) Urine Nitrite (NEGATIVE) Urine Bilirubin (NEGATIVE) Urine Ictotest Urine Urobilinogen (<2.0) EU/dL Ur Leukocyte Esterase (NEGATIVE) Urine RBC (0-2/HPF) Urine WBC (0-5/HPF) Ur Epithelial Cells (NONE-FEW) Amorphous Sediment (NEGATIVE) Urine Bacteria (NEGATIVE) Urine Mucus (NONE-MOD) Urine Opiates Screen (NEGATIVE) Ur Oxycodone Screen (NEGATIVE) Urine Methadone Screen (NEGATIVE) Ur Barbiturates Screen (NEGATIVE) Ur Phencyclidine Scrn (NEGATIVE) Ur Amphetamine Screen (NEGATIVE) U Methamphetamines Scrn (NEGATIVE) U Benzodiazepines Scrn (NEGATIVE) U Cocaine Metab Screen (NEGATIVE) U Marijuana (THC) Screen (NEGATIVE) Ethyl Alcohol mg/dL SARS-CoV-2 RNA (RADHA) (NEGATIVE) Blood Type Antibody Screen Meds: Medications Generic Name Dose Route Start Last Admin Trade Name Freq PRN Reason Stop Dose Admin Lactated Ringer's 1,000 mls @ 125 mls/hr 10/05/20 13:15 10/05/20 13:21 Ringers, Lactated IV 125 mls/hr ASDIRECTED VERONICA Administration Magnesium Sulfate 2 gm in 50 mls @ 50 mls/hr 10/05/20 13:15 10/05/20 13:21 Magnesium Sulfate In Water 2 Gm/50 Ml IV 10/05/20 14:14 50 mls/hr ONETIME ONE Administration Sodium Chloride 10 ml 10/05/20 11:08 10/05/20 12:21 Sodium Chloride 0.9% 10 Ml Syringe FLUSH 10 ml ASDIRECTED PRN Administration Keep Vein Open Sodium Chloride 2.5 ml 10/05/20 11:08 10/05/20 12:21 Sodium Chloride 0.9% 2.5 Ml Syringe FLUSH 2.5 ml ASDIRECTED PRN Administration Keep Vein Open Discontinued Medications Generic Name Dose Route Start Last Admin Trade Name Freq PRN Reason Stop Dose Admin Sodium Chloride 1,000 mls @ 999 mls/hr 10/05/20 11:08 10/05/20 11:30 Normal Saline IV 10/05/20 12:08 999 mls/hr BOLUS ONE Administration Protocol Vancomycin HCl 1 gm/ Sodium 250 mls @ 166 mls/hr 10/05/20 11:10 10/05/20 1 2:20 Chloride IV 10/05/20 12:40 166 mls/hr ONETIME ONE Administration Cefepime HCl 2 gm/ Premix 50 mls @ 100 mls/hr 10/05/20 12:00 10/05/20 12:21 IV 10/05/20 12:29 100 mls/hr STAT ONE Administration Pantoprazole Sodium 80 mg/ 20 mls @ 420 mls/hr 10/05/20 13:48 Sodium Chloride IVPUSH 10/05/20 13:50 ONETIME ONE Ibuprofen 600 mg 10/05/20 11:33 10/05/20 12:19 Ibuprofen 600 Mg Tab PO 10/05/20 11:34 600 mg ONETIME ONE Administration Departure - Departure Time of Disposition: 14:01 Disposition: DC/Tfer to [facility] 02 Condition: Serious Clinical Impression: Sepsis, Acute renal failure, Melena, Rhabdomyolysis - Discharge Information Referrals: PCP,Not In Area [Primary Care Provider] - Forms: ED Department Discharge Sepsis Event Note (ED) - Evaluation Sepsis Screening Result: Possible Severe Sepsis Risk - Focused Exam Vital Signs: Vital Signs Temp Temp Pulse BP Pulse Ox 10/05/20 13:09 100 136/94 H 94 L 10/05/20 12:57 38.7 C H 10/05/20 12:40 107 H 137/95 H 98 10/05/20 12:19 40.7 C H 10/05/20 12:18 98 10/05/20 12:10 135/94 H 99 10/05/20 11:41 119 H 140/96 H 99 10/05/20 11:25 40.7 C H 122 H 146/105 H 100 - My Orders Last 24 Hours: My Active Orders 10/05/20 11:17 HAPTOGLOBIN [REF] Stat 10/05/20 12:12 Urinary Catheter Assessment [RC] ASDIRECTED 10/05/20 12:15 Insert Holguin Catheter [Insert Urinary Catheter] [OM.PC] Q24H 10/05/20 12:28 EKG 12 Lead [EKG Documentation Completion] [RC] STAT 10/05/20 13:15 Lactated Ringers [Ringers, Lactated] 1,000 ml IV ASDIRECTED Magnesium Sulfate/Water [Magnesium Sulfate in Water 2 GM/50 ML] 2 gm in 50 ml IV ONETIME - Assessment/Plan Last 24 Hours: My Active Orders 10/05/20 11:17 HAPTOGLOBIN [REF] Stat 10/05/20 12:12 Urinary Catheter Assessment [RC] ASDIRECTED 10/05/20 12:15 Insert Holguin Catheter [Insert Urinary Catheter] [OM.PC] Q24H 10/05/20 12:28 EKG 12 Lead [EKG Documentation Completion] [RC] STAT 10/05/20 13:15 Lactated Ringers [Ringers, Lactated] 1,000 ml IV ASDIRECTED Magnesium Sulfate/Water [Magnesium Sulfate in Water 2 GM/50 ML] 2 gm in 50 ml IV ONETIME
[2020-10-05] MEDS ORDERED: Pantoprazole 80 MG in Sodium Chloride 0.9% 20 ML IVPUSH ONE (13:48)
--- NOTE | 2020-10-05 13:50 | PCM.EKG ---
#1 Interpretation EKG Date: 10/05/20 Time: 11:25 Rhythm: NSR Rate (Beats/Min): 119 [place]: Normal P-Wave: Present QRS: Normal ST-T: Normal QT: Normal Comparison: NA - No Prior EKG EKG Interpretation Comments: Sinus Tachycardia
--- NOTE | 2020-10-05 13:51 | PCM.EKG ---
#1 Interpretation EKG Date: 10/05/20 Time: 12:27 Rhythm: NSR Rate (Beats/Min): 106 [place]: Normal P-Wave: Present QRS: Normal ST-T: Normal QT: Prolonged EKG Interpretation Comments: Sinus tachycardia with prolong QT
== END 2020-10-05 14:02 ==
LOC: MW.ED 10:59
DX: A41.9 Sepsis, unspecified organism (principal); N17.9 Acute kidney failure, unspecified; K92.1 Melena; M62.82 Rhabdomyolysis; J96.01 Acute respiratory failure with hypoxia; R79.89 Other specified abnormal findings of blood chemistry; E87.2 Acidosis; E78.00 Pure hypercholesterolemia, unspecified; I10 Essential (primary) hypertension; Z20.822 Contact with and (suspected) exposure to COVID-19
CPT/HCPCS: 36415; 36600; 70450; 71045; 72125; 80053; 80305; 80307; 81001; 82550; 82803; 83010; 83605; 83690; 83735; 84484; 85025; 85379; 85384; 85610; 86850; 86900; 86901; 87040; 87186; 87635; 93005; 96365; 96367; 96368; 96375; 99285; A9270; C9113; J0692; J3370; J3475; J7030; J7050; J7120; 51702; 87077; 99291; 99292; U0002

== ENCOUNTER 2020-10-10 12:09 | Observation (INO) | payer SELFPAY ==
[2020-10-10] MEDS ORDERED: Thiamine 100 MG in Sodium Chloride 0.9% 100 ML IV ONE (13:15)
[2020-10-10] MEDS ORDERED: Folic Acid 50 MG/10 ML MDV IV SCH (13:15)
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
[2020-10-10] MEDS ORDERED: Thiamine 200 MG/2 ML MDV IVPUSH ONE (13:45)
--- NOTE | 2020-10-10 14:15 | CT ---
INDICATION: Confusion, ETOH use TECHNIQUE: Head CT without contrast. COMPARISON: October 05, 2020 FINDINGS: CSF spaces: Within normal limits for age. Brain parenchyma: There are nonspecific low attenuation white matter changes consistent with chronic microvascular disease. No sign of mass, hemorrhage, or midline shift. Skull base and calvarium: Mucosal thickening in both maxillary sinuses. The mastoid air cells demonstrate no acute or significant findings. The visualized orbits are grossly unremarkable. No skull fractures. IMPRESSION: 1. No acute findings. 2. Nonspecific white matter disease, typical of chronic microvascular disease. Please note that all CT scans at this facility use dose modulation, iterative reconstruction, and/or weight-based dosing when appropriate to reduce radiation dose to as low as reasonably achievable. Dictated by Марина Rao MD @ 10/10/2020 2:13:[address] Марина Rao @ Oct 10 2020 2:13PM
[2020-10-10 14:23] LABS: BLOOD UREA NITROGEN,BUN 18 mg/dL (7.0-18.0); CARBON DIOXIDE,CO2 23.4 mmol/L (21.0-32.0); CHLORIDE,CL 103 mmol/L (98-107); GLUCOSE RANDOM 88 mg/dL (74-106); LIPASE 247 U/L (73-393); POTASSIUM,K 3.2 mmol/L (3.5-5.1); SODIUM,NA 139 mmol/L (136-148)
[2020-10-10] MEDS ORDERED: Magnesium Sulfate (4.06 MEQ/ML) 5 GM/10 ML SDV IV STA (14:33)
[2020-10-10] MEDS ORDERED: Potassium Chloride 10% 20 MEQ/15 ML Soln 30 ML UD Cup PO ONE (14:45)
[2020-10-10] MEDS ORDERED: Magnesium Sulfate/Water 1 GM/25 ML BAG IV ONE (15:00)
[2020-10-10] MEDS ORDERED: Sodium Chloride 0.9% 1,000 ML IV ONE ×2 (15:03→17:31)
[2020-10-10] MEDS: Nicotine 14 MG/24 Hr Patch TRDERM SCH (17:40)
[2020-10-10] MEDS ORDERED: LORazepam 2 MG/ML SDV IVPUSH PRN (18:42)
[2020-10-10] MEDS ORDERED: Ondansetron 4 MG Tab.DIS PO PRN (18:42)
[2020-10-10] MEDS ORDERED: Acetaminophen 325 MG Tab PO PRN (18:42)
[2020-10-10] MEDS ORDERED: Docusate Sodium 100 MG Cap PO PRN (18:42)
[2020-10-10] MEDS ORDERED: Nitroglycerin 0.4 MG Tab.SL SL SCH (19:00)
--- NOTE | 2020-10-10 19:05 | PCM.HP.2 ---
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 [facility] Last Admin: 10/11/20 09:19 Dose: 25 mg Documented by: RAUL Nicotine (Nicotine 14 Mg/24 Hr Patch) 14 mg TRDERM DAILY [facility] Last Admin: 10/11/20 09:18 Dose: 14 mg Documented by: Admin: 10/10/20 17:40 Dose: 14 mg Documented by: KEMI Nitroglycerin (Nitroglycerin 0.4 Mg Tab.Sl) 0.4 mg SL ASDIRECTED [facility] Ondansetron HCl (Ondansetron 4 Mg Tab.Dis) 4 mg PO Q4H PRN PRN Reason: nausea, able to take PO Sodium Chloride (Sodium Chloride 0.9% 2.5 Ml Syringe) 2.5 ml FLUSH ASDIRECTED PRN PRN Reason: Keep Vein Open Thiamine HCl (Thiamine 100 Mg Tab) 100 mg PO BEDTIME [facility] Assessment/Plan Comment:: I performed a history and physical exam of the patient and discussed management with resident. I have reviewed the residents note and agree with documented findings and plan unless otherwise specified in my note.
[2020-10-10] MEDS: Lactated Ringers 1,000 ML IV SCH (20:30)
[2020-10-10] MEDS ORDERED: Thiamine 100 MG Tab PO SCH (21:00)
[2020-10-11] MEDS: Lactated Ringers 1,000 ML IV SCH ×5 (04:47→22:54)
[2020-10-11 07:08] LABS: BLOOD UREA NITROGEN,BUN 17 mg/dL (7.0-18.0); CARBON DIOXIDE,CO2 21.3 mmol/L (21.0-32.0); CHLORIDE,CL 107 mmol/L (98-107); GLUCOSE RANDOM 116 mg/dL (74-106); POTASSIUM,K 4.1 mmol/L (3.5-5.1); SODIUM,NA 140 mmol/L (136-148)
[2020-10-11] MEDS ORDERED: Sodium Chloride 0.9% 2.5 ML Syringe FLUSH PRN (08:10)
--- NOTE | 2020-10-11 08:12 | PCM.PN ---
- General Info Date of Service: 10/11/20 Admission Dx/Problem (Free Text): Admission Diagnosis/Problem Admission Diagnosis/Problem Rhabdomyolysis Subjective Update: Feeling much improved. Denies any chest pain shortness of breath. Hallucinations no tremors. No weakness or muscle soreness. Functional Status: Reports: Pain Controlled, Tolerating Diet, Ambulating, Urinating - Review of Systems General: Reports: No Symptoms. Denies: Weakness, Fatigue, Malaise HEENT: Reports: No Symptoms Pulmonary: Reports: No Symptoms. Denies: Shortness of Breath Cardiovascular: Reports: No Symptoms. Denies: Chest Pain Gastrointestinal: Reports: No Symptoms. Denies: Abdominal Pain, Nausea, Vomiting Genitourinary: Reports: No Symptoms Musculoskeletal: Reports: No Symptoms Skin: Reports: No Symptoms Neurological: Reports: No Symptoms Psychiatric: Reports: No Symptoms - Patient Data Vitals - Most Recent: Last Vital Signs Temp 97.4 F 10/11/20 04:00 Pulse 87 10/11/20 04:00 Resp 19 10/11/20 04:00 BP 179/84 H 10/11/20 04:00 Pulse Ox 93 L 10/11/20 04:00 Weight - Most Recent: 86.5 kg I&O - Last 24 Hours: Intake & Output 10/10/20 10/11/20 10/11/20 22:59 06:59 14:59 Intake Total 1800 Output Total 1250 Balance 550 Lab Results Last 24 Hours: Laboratory Results - last 24 hr 10/10/20 10/10/20 10/10/20 Range/Units 13:32 13:32 13:32 WBC 8.59 (4.0-11.0) K/uL RBC 3.67 L (4.50-5.90) M/uL Hgb 12.9 L (13.0-17.0) g/dL Hct 37.2 L (38.0-50.0) % MCV 101.4 H (80.0-98.0) fL MCH 35.1 H (27.0-32.0) pg MCHC 34.7 (31.0-37.0) g/dL RDW Std Deviation 50.1 (28.0-62.0) fl RDW Coeff of Shakeel 14 (11.0-15.0) % Plt Count 167 (150-400) K/uL MPV 10.10 (7.40-12.00) fL Neut % (Auto) 60.1 (48.0-80.0) % Lymph % (Auto) 20.3 (16.0-40.0) % [place] % (Auto) 17.5 H (0.0-15.0) % Eos % (Auto) 2.0 (0.0-7.0) % Baso % (Auto) 0.1 (0.0-1.5) % Neut # (Auto) 5.2 (1.4-5.7) K/uL Lymph # (Auto) 1.7 (0.6-2.4) K/uL [place] # (Auto) 1.5 H (0.0-0.8) K/uL Eos # (Auto) 0.2 (0.0-0.7) K/uL Baso # (Auto) 0.0 (0.0-0.1) K/uL Nucleated RBC % 0.0 /100WBC Nucleated RBCs # 0 K/uL Sodium 139 (136-148) mmol/L Potassium 3.2 L (3.5-5.1) mmol/L Chloride 103 (98-107) mmol/L Carbon Dioxide 23.4 (21.0-32.0) mmol/L BUN 18 (7.0-18.0) mg/dL Creatinine 0.9 (0.8-1.3) mg/dL Est Cr Clr Drug Dosing 92.38 mL/min Estimated GFR (MDRD) > 60.0 ml/min Glucose 88 (74-106) mg/dL Calcium 8.9 (8.5-10.1) mg/dL Phosphorus 2.9 (2.6-4.7) mg/dL Magnesium 1.6 L (1.8-2.4) mg/dL Total Bilirubin 0.8 (0.2-1.0) mg/dL AST 380 H (15-37) IU/L ALT 279 H (14-63) IU/L Alkaline Phosphatase 75 (46-116) U/L Creatine Kinase 1077 H (26-308) U/L Troponin I (0.000-0.056) ng/mL Total Protein 6.2 L (6.4-8.2) g/dL Albumin 3.0 L (3.4-5.0) g/dL Globulin 3.2 (2.6-4.0) g/dL Albumin/Globulin Ratio 0.9 (0.9-1.6) Lipase 247 (73-393) U/L Ethyl Alcohol <3 mg/dL 10/10/20 10/10/20 10/11/20 Range/Units 16:25 16:25 05:13 WBC 6.91 (4.0-11.0) K/uL RBC 3.59 L (4.50-5.90) M/uL Hgb 12.6 L (13.0-17.0) g/dL Hct 36.7 L (38.0-50.0) % MCV 102.2 H (80.0-98.0) fL MCH 35.1 H (27.0-32.0) pg MCHC 34.3 (31.0-37.0) g/dL RDW Std Deviation 50.7 (28.0-62.0) fl RDW Coeff of Shakeel 14 (11.0-15.0) % Plt Count 206 (150-400) K/uL MPV 10.10 (7.40-12.00) fL Neut % (Auto) 53.2 (48.0-80.0) % Lymph % (Auto) 25.8 (16.0-40.0) % [place] % (Auto) 17.4 H (0.0-15.0) % Eos % (Auto) 3.5 (0.0-7.0) % Baso % (Auto) 0.1 (0.0-1.5) % Neut # (Auto) 3.7 (1.4-5.7) K/uL Lymph # (Auto) 1.8 (0.6-2.4) K/uL [place] # (Auto) 1.2 H (0.0-0.8) K/uL Eos # (Auto) 0.2 (0.0-0.7) K/uL Baso # (Auto) 0.0 (0.0-0.1) K/uL Nucleated RBC % 0.0 /100WBC Nucleated RBCs # 0 K/uL Sodium (136-148) mmol/L Potassium (3.5-5.1) mmol/L Chloride (98-107) mmol/L Carbon Dioxide (21.0-32.0) mmol/L BUN (7.0-18.0) mg/dL Creatinine (0.8-1.3) mg/dL Est Cr Clr Drug Dosing mL/min Estimated GFR (MDRD) ml/min Glucose (74-106) mg/dL Calcium (8.5-10.1) mg/dL Phosphorus (2.6-4.7) mg/dL Magnesium (1.8-2.4) mg/dL Total Bilirubin (0.2-1.0) mg/dL AST (15-37) IU/L ALT (14-63) IU/L Alkaline Phosphatase (46-116) U/L Creatine Kinase 4800 H (26-308) U/L Troponin I < 0.050 (0.000-0.056) ng/mL Total Protein (6.4-8.2) g/dL Albumin (3.4-5.0) g/dL Globulin (2.6-4.0) g/dL Albumin/Globulin Ratio (0.9-1.6) Lipase (73-393) U/L Ethyl Alcohol mg/dL 10/11/20 Range/Units 05:13 WBC (4.0-11.0) K/uL RBC (4.50-5.90) M/uL Hgb (13.0-17.0) g/dL Hct (38.0-50.0) % MCV (80.0-98.0) fL MCH (27.0-32.0) pg MCHC (31.0-37.0) g/dL RDW Std Deviation (28.0-62.0) fl RDW Coeff of Shakeel (11.0-15.0) % Plt Count (150-400) K/uL MPV (7.40-12.00) fL Neut % (Auto) (48.0-80.0) % Lymph % (Auto) (16.0-40.0) % [place] % (Auto) (0.0-15.0) % Eos % (Auto) (0.0-7.0) % Baso % (Auto) (0.0-1.5) % Neut # (Auto) (1.4-5.7) K/uL Lymph # (Auto) (0.6-2.4) K/uL [place] # (Auto) (0.0-0.8) K/uL Eos # (Auto) (0.0-0.7) K/uL Baso # (Auto) (0.0-0.1) K/uL Nucleated RBC % /100WBC Nucleated RBCs # K/uL Sodium 140 (136-148) mmol/L Potassium 4.1 (3.5-5.1) mmol/L Chloride 107 (98-107) mmol/L Carbon Dioxide 21.3 (21.0-32.0) mmol/L BUN 17 (7.0-18.0) mg/dL Creatinine 0.8 (0.8-1.3) mg/dL Est Cr Clr Drug Dosing 103.92 mL/min Estimated GFR (MDRD) > 60.0 ml/min Glucose 116 H (74-106) mg/dL Calcium 8.3 L (8.5-10.1) mg/dL Phosphorus 3.2 (2.6-4.7) mg/dL Magnesium 1.6 L (1.8-2.4) mg/dL Total Bilirubin 0.3 (0.2-1.0) mg/dL AST 225 H (15-37) IU/L ALT 217 H (14-63) IU/L Alkaline Phosphatase 81 (46-116) U/L Creatine Kinase 3011 H (26-308) U/L Troponin I (0.000-0.056) ng/mL Total Protein 5.7 L (6.4-8.2) g/dL Albumin 2.6 L (3.4-5.0) g/dL Globulin 3.1 (2.6-4.0) g/dL Albumin/Globulin Ratio 0.8 L (0.9-1.6) Lipase (73-393) U/L Ethyl Alcohol mg/dL Med Orders - Current: Current Medications Acetaminophen (Acetaminophen 325 Mg Tab) 650 mg PO Q4H PRN PRN Reason: Pain (Mild 1-3)/fever Amlodipine Besylate (Amlodipine 5 Mg Tab) 5 mg PO DAILY [facility] Aspirin (Aspirin 81 Mg Tab.Ec) 81 mg PO DAILY [facility] Atorvastatin Calcium (Atorvastatin 40 Mg Tab) 80 mg PO DAILY [facility] Docusate Sodium (Docusate Sodium 100 Mg Cap) 100 mg PO BID PRN PRN Reason: Constipation Folic Acid (Folic Acid 1 Mg Tab) 1 mg PO DAILY [facility] Pantoprazole Sodium 40 mg/ (Sodium Chloride) 10 mls @ 300 mls/hr IV DAILY [facility] Lactated Ringer's (Ringers, Lactated) 1,000 mls @ 200 mls/hr IV ASDIRECTED [facility] Last Admin: 10/11/20 05:37 Dose: 200 mls/hr Documented by: Magnesium Sulfate 2 gm/ Premix 50 mls @ 12.5 mls/hr IV ONETIME ONE Stop: 10/11/20 12:08 Lorazepam (Lorazepam 2 Mg/Ml Sdv) 0 mg IVPUSH Q4H PRN; Protocol PRN Reason: Withdrawal Symptoms Losartan Potassium (Losartan 50 Mg Tab) 100 mg PO DAILY [facility] Metoprolol Succinate (Metoprolol Succinate 25 Mg Tab.Er) 25 mg PO DAILY [facility] Nicotine (Nicotine 14 Mg/24 Hr Patch) 14 mg TRDERM DAILY [facility] Last Admin: 10/10/20 17:40 Dose: 14 mg Documented by: Nitroglycerin (Nitroglycerin 0.4 Mg Tab.Sl) 0.4 mg SL ASDIRECTED [facility] Ondansetron HCl (Ondansetron 4 Mg Tab.Dis) 4 mg PO Q4H PRN PRN Reason: nausea, able to take PO Sodium Chloride (Sodium Chloride 0.9% 2.5 Ml Syringe) 2.5 ml FLUSH ASDIRECTED PRN PRN Reason: Keep Vein Open Thiamine HCl (Thiamine 100 Mg Tab) 100 mg PO BEDTIME [facility] Discontinued Medications Folic Acid (Folic Acid 50 Mg/10 Ml Mdv) 1 mg IV DAILY [facility] Last Admin: 10/10/20 14:22 Dose: 1 mg Documented by: Thiamine HCl 100 mg/ Sodium (Chloride) 101 mls @ 202 mls/hr IV ONETIME ONE Stop: 10/10/20 13:16 Last Admin: 10/10/20 14:19 Dose: Not Given Documented by: Magnesium Sulfate (Magnesium Sulfate In Water 2 Gm/50 Ml) 1 gm in 25 mls @ 25 mls/hr IV ONETIME ONE Stop: 10/10/20 15:59 Last Admin: 10/10/20 15:18 Dose: 25 mls/hr Documented by: Sodium Chloride (Normal Saline) 1,000 mls @ 1,000 mls/hr IV .Bolus ONE Stop: 10/10/20 16:02 Last Admin: 10/10/20 15:18 Dose: 1,000 mls/hr Documented by: Sodium Chloride (Normal Saline) 1,000 mls @ 1,000 mls/hr IV .Bolus ONE Stop: 10/10/20 18:30 Last Admin: 10/10/20 17:40 Dose: 1,000 mls/hr Documented by: Potassium Chloride (Potassium Chloride 10% 20 Meq/15 Ml Soln 30 Ml Ud Cup) 80 meq PO ONETIME ONE Stop: 10/10/20 14:46 Last Admin: 10/10/20 15:20 Dose: 80 meq Documented by: Thiamine HCl (Thiamine 200 Mg/2 Ml Mdv) 100 mg IVPUSH ONETIME ONE Stop: 10/10/20 13:46 Last Admin: 10/10/20 14:22 Dose: 100 mg Documented by: Thiamine HCl (Thiamine 100 Mg Tab) 100 mg PO BEDTIME [facility] - Exam General: Alert, Oriented, Cooperative, No Acute Distress Neck: Supple Lungs: Clear to Auscultation, Normal Respiratory Effort Cardiovascular: Regular Rate, Regular Rhythm GI/Abdominal Exam: Normal Bowel Sounds, Soft, Non-Tender Extremities: Normal Inspection, Normal Range of Motion, Non-Tender, No Pedal Edema Wound/Incisions: Healing Well Neurological: No New Focal Deficit Psy/Mental Status: Alert, Normal Affect - Patient Data Lab Results Last 24 hrs: Laboratory Results - last 24 hr 10/10/20 10/10/20 10/10/20 Range/Units 13:32 13:32 13:32 WBC 8.59 (4.0-11.0) K/uL RBC 3.67 L (4.50-5.90) M/uL Hgb 12.9 L (13.0-17.0) g/dL Hct 37.2 L (38.0-50.0) % MCV 101.4 H (80.0-98.0) fL MCH 35.1 H (27.0-32.0) pg MCHC 34.7 (31.0-37.0) g/dL RDW Std Deviation 50.1 (28.0-62.0) fl RDW Coeff of Shakeel 14 (11.0-15.0) % Plt Count 167 (150-400) K/uL MPV 10.10 (7.40-12.00) fL Neut % (Auto) 60.1 (48.0-80.0) % Lymph % (Auto) 20.3 (16.0-40.0) % [place] % (Auto) 17.5 H (0.0-15.0) % Eos % (Auto) 2.0 (0.0-7.0) % Baso % (Auto) 0.1 (0.0-1.5) % Neut # (Auto) 5.2 (1.4-5.7) K/uL Lymph # (Auto) 1.7 (0.6-2.4) K/uL [place] # (Auto) 1.5 H (0.0-0.8) K/uL Eos # (Auto) 0.2 (0.0-0.7) K/uL Baso # (Auto) 0.0 (0.0-0.1) K/uL Nucleated RBC % 0.0 /100WBC Nucleated RBCs # 0 K/uL Sodium 139 (136-148) mmol/L Potassium 3.2 L (3.5-5.1) mmol/L Chloride 103 (98-107) mmol/L Carbon Dioxide 23.4 (21.0-32.0) mmol/L BUN 18 (7.0-18.0) mg/dL Creatinine 0.9 (0.8-1.3) mg/dL Est Cr Clr Drug Dosing 92.38 mL/min Estimated GFR (MDRD) > 60.0 ml/min Glucose 88 (74-106) mg/dL Calcium 8.9 (8.5-10.1) mg/dL Phosphorus 2.9 (2.6-4.7) mg/dL Magnesium 1.6 L (1.8-2.4) mg/dL Total Bilirubin 0.8 (0.2-1.0) mg/dL AST 380 H (15-37) IU/L ALT 279 H (14-63) IU/L Alkaline Phosphatase 75 (46-116) U/L Creatine Kinase 1077 H (26-308) U/L Troponin I (0.000-0.056) ng/mL Total Protein 6.2 L (6.4-8.2) g/dL Albumin 3.0 L (3.4-5.0) g/dL Globulin 3.2 (2.6-4.0) g/dL Albumin/Globulin Ratio 0.9 (0.9-1.6) Lipase 247 (73-393) U/L Ethyl Alcohol <3 mg/dL 10/10/20 10/10/20 10/11/20 Range/Units 16:25 16:25 05:13 WBC 6.91 (4.0-11.0) K/uL RBC 3.59 L (4.50-5.90) M/uL Hgb 12.6 L (13.0-17.0) g/dL Hct 36.7 L (38.0-50.0) % MCV 102.2 H (80.0-98.0) fL MCH 35.1 H (27.0-32.0) pg MCHC 34.3 (31.0-37.0) g/dL RDW Std Deviation 50.7 (28.0-62.0) fl RDW Coeff of Shakeel 14 (11.0-15.0) % Plt Count 206 (150-400) K/uL MPV 10.10 (7.40-12.00) fL Neut % (Auto) 53.2 (48.0-80.0) % Lymph % (Auto) 25.8 (16.0-40.0) % [place] % (Auto) 17.4 H (0.0-15.0) % Eos % (Auto) 3.5 (0.0-7.0) % Baso % (Auto) 0.1 (0.0-1.5) % Neut # (Auto) 3.7 (1.4-5.7) K/uL Lymph # (Auto) 1.8 (0.6-2.4) K/uL [place] # (Auto) 1.2 H (0.0-0.8) K/uL Eos # (Auto) 0.2 (0.0-0.7) K/uL Baso # (Auto) 0.0 (0.0-0.1) K/uL Nucleated RBC % 0.0 /100WBC Nucleated RBCs # 0 K/uL Sodium (136-148) mmol/L Potassium (3.5-5.1) mmol/L Chloride (98-107) mmol/L Carbon Dioxide (21.0-32.0) mmol/L BUN (7.0-18.0) mg/dL Creatinine (0.8-1.3) mg/dL Est Cr Clr Drug Dosing mL/min Estimated GFR (MDRD) ml/min Glucose (74-106) mg/dL Calcium (8.5-10.1) mg/dL Phosphorus (2.6-4.7) mg/dL Magnesium (1.8-2.4) mg/dL Total Bilirubin (0.2-1.0) mg/dL AST (15-37) IU/L ALT (14-63) IU/L Alkaline Phosphatase (46-116) U/L Creatine Kinase 4800 H (26-308) U/L Troponin I < 0.050 (0.000-0.056) ng/mL Total Protein (6.4-8.2) g/dL Albumin (3.4-5.0) g/dL Globulin (2.6-4.0) g/dL Albumin/Globulin Ratio (0.9-1.6) Lipase (73-393) U/L Ethyl Alcohol mg/dL 10/11/20 Range/Units 05:13 WBC (4.0-11.0) K/uL RBC (4.50-5.90) M/uL Hgb (13.0-17.0) g/dL Hct (38.0-50.0) % MCV (80.0-98.0) fL MCH (27.0-32.0) pg MCHC (31.0-37.0) g/dL RDW Std Deviation (28.0-62.0) fl RDW Coeff of Shakeel (11.0-15.0) % Plt Count (150-400) K/uL MPV (7.40-12.00) fL Neut % (Auto) (48.0-80.0) % Lymph % (Auto) (16.0-40.0) % [place] % (Auto) (0.0-15.0) % Eos % (Auto) (0.0-7.0) % Baso % (Auto) (0.0-1.5) % Neut # (Auto) (1.4-5.7) K/uL Lymph # (Auto) (0.6-2.4) K/uL [place] # (Auto) (0.0-0.8) K/uL Eos # (Auto) (0.0-0.7) K/uL Baso # (Auto) (0.0-0.1) K/uL Nucleated RBC % /100WBC Nucleated RBCs # K/uL Sodium 140 (136-148) mmol/L Potassium 4.1 (3.5-5.1) mmol/L Chloride 107 (98-107) mmol/L Carbon Dioxide 21.3 (21.0-32.0) mmol/L BUN 17 (7.0-18.0) mg/dL Creatinine 0.8 (0.8-1.3) mg/dL Est Cr Clr Drug Dosing 103.92 mL/min Estimated GFR (MDRD) > 60.0 ml/min Glucose 116 H (74-106) mg/dL Calcium 8.3 L (8.5-10.1) mg/dL Phosphorus 3.2 (2.6-4.7) mg/dL Magnesium 1.6 L (1.8-2.4) mg/dL Total Bilirubin 0.3 (0.2-1.0) mg/dL AST 225 H (15-37) IU/L ALT 217 H (14-63) IU/L Alkaline Phosphatase 81 (46-116) U/L Creatine Kinase 3011 H (26-308) U/L Troponin I (0.000-0.056) ng/mL Total Protein 5.7 L (6.4-8.2) g/dL Albumin 2.6 L (3.4-5.0) g/dL Globulin 3.1 (2.6-4.0) g/dL Albumin/Globulin Ratio 0.8 L (0.9-1.6) Lipase (73-393) U/L Ethyl Alcohol mg/dL Result Diagrams: 10/11/20 05:13 10/11/20 05:13 Sepsis Event Note - Evaluation Sepsis Screening Result: No Definite Risk - Focused Exam Vital Signs: Vital Signs Temp Pulse Resp BP Pulse Ox 10/11/20 04:00 97.4 F 87 19 179/84 H 93 L 10/11/20 00:30 97.9 F 84 16 148/77 H 97 - Problem List & Annotations (1) Rhabdomyolysis SNOMED Code(s): 153858821 Code(s): M62.82 - RHABDOMYOLYSIS Status: Acute Current Visit: Yes (2) Dyslipidemia SNOMED Code(s): 889740692 Code(s): E78.5 - HYPERLIPIDEMIA, UNSPECIFIED Status: Chronic Current Visit: No (3) Hypertension SNOMED Code(s): 03570038 Code(s): I10 - ESSENTIAL (PRIMARY) HYPERTENSION Status: Chronic Current Visit: No (4) Transaminitis SNOMED Code(s): 848014163, 683922719 Code(s): R74.01 - ELEVATION OF LEVELS OF LIVER TRANSAMINASE LEVELS Status: Acute Current Visit: No (5) Alcohol abuse SNOMED Code(s): 15110090 Code(s): F10.10 - ALCOHOL ABUSE, UNCOMPLICATED Status: Acute Current Visit: Yes - Problem List Review Problem List Initiated/Reviewed/Updated: Yes - My Orders Last 24 Hours: My Active Orders 10/11/20 08:09 Magnesium Sulfate/Water [Magnesium Sulfate in Water 2 GM/50 ML] 2 gm Premix Bag 1 bag IV ONETIME 10/11/20 08:10 Intake and Output Strict [RC] ASDIRECTED Sodium Chloride 0.9% [Saline Flush] 2.5 ml FLUSH ASDIRECTED PRN Saline Lock Insert [OM.PC] Routine 10/12/20 05:11 MAGNESIUM [CHEM] AM PHOSPHORUS [CHEM] AM 10/13/20 05:11 MAGNESIUM [CHEM] AM PHOSPHORUS [CHEM] AM - Plan Plan:: 60-year-old gentleman brought in by family for Wernicke encephalopathy, found to have rhabdomyolysis, and elevated vitals both hypertensive and tachycardic on admission possibly secondary to alcohol withdrawal. 1. Rhabdomyolysis: -CPK improved to 3000 -Continue rest of IV fluid resuscitation with LR 200 mL/h -Hold statin due to rhabdo as well as transaminitis 2. Alcohol withdrawal - Patient alert and oriented x4, - Continue to treat with folic acid, thiamine, - CIWA's protocol with Ativan Ativan available as needed for withdrawal symptoms. 3. Transaminitis secondary to above: -Slow steady improvement -Monitor daily -Hold statin 4. Hypokalemia: -Resolved today 5. Hypomagnesemia: - 1.6 today, repleted with 2 g IV, - recheck with morning labs and replete as necessary. 6. Past medical history of hypertension, hyperlipidemia, tobacco abuse disorder: - Resume all appropriate home meds, provided patient with nicotine patch. CODE STATUS: Full code DVT prophylaxis: SCDs GI prophylaxis: Protonix IV 40 daily Dispo: Likely in a.m.
[2020-10-11] MEDS ORDERED: Magnesium Sulfate/Water 2 GM in Premix Bag 1 BAG IV ONE (08:15)
[2020-10-11] MEDS: Pantoprazole 40 MG in Sodium Chloride 0.9% 10 ML IV SCH (08:59)
[2020-10-11] MEDS ORDERED: atorvaSTATin 40 MG Tab PO SCH (09:00)
[2020-10-11] MEDS: Folic Acid 1 MG Tab PO SCH (09:17)
[2020-10-11] MEDS: Aspirin 81 MG Tab.EC PO SCH (09:17)
[2020-10-11] MEDS: amLODIPine 5 MG Tab PO SCH (09:17)
[2020-10-11] MEDS: Nicotine 14 MG/24 Hr Patch TRDERM SCH (09:18)
[2020-10-11] MEDS: Losartan 50 MG Tab PO SCH (09:18)
[2020-10-11] MEDS: Metoprolol Succinate 25 MG Tab.ER PO SCH (09:19)
[2020-10-11] MEDS ORDERED: Thiamine 100 MG Tab PO SCH (21:00)
[2020-10-12] MEDS: Lactated Ringers 1,000 ML IV SCH (03:56)
[2020-10-12 06:58] LABS: BLOOD UREA NITROGEN,BUN 17 mg/dL (7.0-18.0); CARBON DIOXIDE,CO2 25.2 mmol/L (21.0-32.0); CHLORIDE,CL 106 mmol/L (98-107); GLUCOSE RANDOM 108 mg/dL (74-106); POTASSIUM,K 3.8 mmol/L (3.5-5.1); SODIUM,NA 141 mmol/L (136-148)
[2020-10-12] MEDS: Metoprolol Succinate 25 MG Tab.ER PO SCH (08:40)
[2020-10-12] MEDS: Aspirin 81 MG Tab.EC PO SCH (08:42)
[2020-10-12] MEDS: Losartan 50 MG Tab PO SCH (08:43)
[2020-10-12] MEDS: Folic Acid 1 MG Tab PO SCH (08:43)
[2020-10-12] MEDS: amLODIPine 5 MG Tab PO SCH (08:43)
[2020-10-12] MEDS: Pantoprazole 40 MG in Sodium Chloride 0.9% 10 ML IV SCH (09:20)
[2020-10-12] MEDS: Nicotine 14 MG/24 Hr Patch TRDERM SCH (09:55)
[2020-10-12] MEDS ORDERED: Magnesium Sulfate/Water 4 GM in Premix Bag 1 BAG IV ONE (10:42)
--- NOTE | 2020-10-12 14:06 | PCM.DCSUM1 ---
<Daniela Velasco - Last Filed: 10/12/20 16:30> Discharge Summary - Hospital Course HPI Initial Comments: Patient is a 60-year-old man who presents today for evaluation of kidney and liver function. Patient was recently sent to my not after being found to have acute kidney injury likely from alcohol. Patient also seen to be in [facility] as well. Patient AMA from my not but does not member why. Patient family states the patient's been confused and not making sense at times. But at times patient does have full conversations. Patient observed denies any complaints on exam and seems to be answering questions appropriately. Patient is less sugar last night and is having shakiness or tremor in his right now. Brief History: Patient is a [id number]-year-old male with known history of alcohol abuse disorder in addition to previous history of hypertension, hyperlipidemia and tobacco abuse disorder. Was brought into the hospital by his family post recent admission from [place] where he was admitted for alcohol withdrawal and left AMA, patient states that he did not recall why he left AMA at that time. Patient was brought in early due to concerns for altered mental status/confusion, however currently patient appears alert and oriented x4. Denies any recent withdrawal, seizures, falls. However states that he had a fall approximately 3 weeks ago. Per patient's history seems as though he may be confabulating or not the best historian. Denies any associated pain, Fever, chills, chest pain, palpitations, syncope, headache, confusion, nausea, vomiting, diarrhea, denies any tremors, any hallucinations. Furthermore denies any muscle aches or pains, weakness, dark reddish-brown urine, abdominal or flank pain. States that this has been a longtime underlying issue recently exacerbated due to a lot of stressors in his life such as his brother who unfortunately has ALS and shares that he may be passing. Patient otherwise denies any concerns, all systems were reviewed and found to be negative except for those mentioned above in the HPI. ER course: 2 L normal saline boluses, nicotine patch, folic acid, thiamine, mag and potassium repleted 1 g mag sulfate and 80 mEq potassium chloride p.o. EKG was normal head CT was normal for no acute findings, negative troponin. CBCWNL, CMPpotassium of 3.2 and mag of 1.6 which are being repleted. AST of 380 ALT of 279, CK of 4800. Lipase 247, U tox is negative. UA with some occult blood possibly myoglobin secondary to rhabdomyolysis. Diagnosis: Stroke: No - Discharge Data Discharge Date: 10/12/20 Discharge Disposition: Home, Self-Care 01 Condition: Stable - Referral to Home Health Primary Care Physician: Tobin Vu MD - Discharge Diagnosis/Problem(s) (1) AMS (altered mental status) SNOMED Code(s): 575226939 ICD Code: R41.82 - ALTERED MENTAL STATUS, UNSPECIFIED Status: Acute (2) Alcohol withdrawal delirium SNOMED Code(s): 0452932 ICD Code: F10.231 - ALCOHOL DEPENDENCE WITH WITHDRAWAL DELIRIUM Status: Acute (3) Wernickes encephalopathy SNOMED Code(s): 72809365 ICD Code: E51.2 - WERNICKE'S ENCEPHALOPATHY Status: Acute (4) Hypertension SNOMED Code(s): 57534557 ICD Code: I10 - ESSENTIAL (PRIMARY) HYPERTENSION Status: Chronic (5) Dyslipidemia SNOMED Code(s): 948985733 ICD Code: E78.5 - HYPERLIPIDEMIA, UNSPECIFIED Status: Chronic (6) Alcohol use SNOMED Code(s): 638700 ICD Code: Z72.89 - OTHER PROBLEMS RELATED TO LIFESTYLE Status: Acute (7) Tobacco use SNOMED Code(s): 874224666 ICD Code: Z72.0 - TOBACCO USE Status: Acute (8) Transaminitis SNOMED Code(s): 701840376, 150649765 ICD Code: R74.01 - ELEVATION OF LEVELS OF LIVER TRANSAMINASE LEVELS Status: Acute (9) Rhabdomyolysis SNOMED Code(s): 477068149 ICD Code: M62.82 - RHABDOMYOLYSIS Status: Acute - Patient Summary/Data Hospital Course: Treatment for rhabdomyolysis and Warnicke secondary to alcohol abuse. Continue appropriate hydration, all electrolytes are appropriately repleted and CK levels trended down appropriately. Patient has baseline, with slightly elevated blood pressures therefore increased his blood pressure medication. Amlodipine 5 mg to 10 mg p.o. daily. Discontinued atorvastatin substituted for better tolerated pravastatin with CoQ10 to prevent further muscle injury. - Patient Instructions Diet: Heart Healthy Diet Activity: As Tolerated Driving: May Drive Today Showering/Bathing: May Shower Notify Provider of: Fever, Increased Pain, Swelling and Redness, Nausea and/or Vomiting Other/Special Instructions: Please return to hospital in the event you start to feel significant muscle pain, weakness, urination is dark cocoa colored, any other changes in urine, inability to produce urine, flank pain or start to experience any confusion. - Discharge Plan *PRESCRIPTION DRUG MONITORING PROGRAM REVIEWED*: Not Applicable *COPY OF PRESCRIPTION DRUG MONITORING REPORT IN PATIENT DANIELA: Not Applicable Prescriptions/Med Rec: Ubidecarenone [Co Q-10] 100 mg PO DAILY 30 Days #30 capsule Folic Acid 1 mg PO DAILY 30 Days #30 tablet Pravastatin [Pravachol] 40 mg PO BEDTIME 30 Days #30 tablet Thiamine [Vitamin B-1] 100 mg PO BEDTIME 30 Days #30 tablet Home Medications: Home Meds Aspirin [Aspirin EC] 81 mg PO DAILY 03/23/20 [History] Losartan [Cozaar] 100 mg PO DAILY 03/23/20 [History] Metoprolol Succinate [Toprol XL] 25 mg PO DAILY 03/23/20 [History] Nitroglycerin [Nitrostat] 0.4 mg SL ASDIRECTED 03/23/20 [History] Ondansetron [Zofran ODT] 4 mg PO Q6HR PRN 03/23/20 [History] Ibuprofen [Motrin] 600 mg PO Q6H PRN #28 tab 09/16/20 [Rx] Sildenafil Citrate [Viagra] 100 mg PO ASDIRECTED PRN 10/11/20 [History] Folic Acid 1 mg PO DAILY 30 Days #30 tablet 10/12/20 [Rx] Pravastatin [Pravachol] 40 mg PO BEDTIME 30 Days #30 tablet 10/12/20 [Rx] Thiamine [Vitamin B-1] 100 mg PO BEDTIME 30 Days #30 tablet 10/12/20 [Rx] Ubidecarenone [Co Q-10] 100 mg PO DAILY 30 Days #30 capsule 10/12/20 [Rx] amLODIPine [Norvasc] 10 mg PO DAILY #0 10/12/20 [Rx] Oxygen Therapy Mode: Room Air Patient Handouts: Rhabdomyolysis, Pravastatin tablets, Thiamine, Vitamin B1 tablets, Folic Acid, Vitamin B9 tablets Referrals: Tobin Vu MD [Primary Care Provider] - 10/26/20 9:00 am - Discharge Summary/Plan Comment DC Time >30 min.: No Discharge Summary/Plan Comment: Please return to hospital in the event your symptoms resume or worsen, patient was thoroughly counseled on needing to abstain for alcohol abuse. Discussed various outpatient programs. Patient should follow-up closely with his PCP. Prior to discharge also counseled patient on need for continuing hydration to prevent any kidney injury. In the interim have discontinued patient's atorvastatin, and started him on pravastatin and co-Q10. Patient's blood pressures were noted to be elevated 150s to 160s systolic therefore I have gone ahead and increase his amlodipine from 5 mg daily to 10 mg daily. Otherwise, will be resuming the rest of patient's home medications. Please see PCP within the next week to recheck CK levels as well as review medications. - Patient Data Vitals - Most Recent: Last Vital Signs Temp 96.9 F 10/12/20 11:52 Pulse 71 10/12/20 11:52 Resp 18 10/12/20 11:52 BP 156/85 H 10/12/20 11:52 Pulse Ox 100 10/12/20 11:52 Weight - Most Recent: 86.5 kg I&O - Last 24 hours: Intake & Output 10/11/20 10/12/20 10/12/20 22:59 06:59 14:59 Intake Total 7521 4003 Output Total 4010 2100 Balance 3511 1903 Lab Results - Last 24 hrs: Laboratory Results - last 24 hr 10/12/20 10/12/20 Range/Units 05:20 05:20 WBC 7.32 (4.0-11.0) K/uL RBC 3.40 L (4.50-5.90) M/uL Hgb 12.0 L (13.0-17.0) g/dL Hct 34.6 L (38.0-50.0) % MCV 101.8 H (80.0-98.0) fL MCH 35.3 H (27.0-32.0) pg MCHC 34.7 (31.0-37.0) g/dL RDW Std Deviation 50.3 (28.0-62.0) fl RDW Coeff of Shakeel 14 (11.0-15.0) % Plt Count 246 (150-400) K/uL MPV 10.20 (7.40-12.00) fL Add Manual Diff YES Neutrophils % (Manual) 50 (48.0-80.0) % Band Neutrophils % 6 % Lymphocytes % (Manual) 36 (16.0-40.0) % Monocytes % (Manual) 2 (0.0-15.0) % Eosinophils % (Manual) 3 (0.0-7.0) % Metamyelocytes % 3 % Nucleated RBC % 0.0 /100WBC Absolute Seg Neuts 3.7 (1.4-5.7) Band Neutrophils # 0.4 Lymphocytes # (Manual) 2.6 H (0.6-2.4) Monocytes # (Manual) 0.1 (0.0-0.8) Eosinophils # (Manual) 0.2 (0.0-0.7) Absolute Metamyelocyte 0.2 Nucleated RBCs # 0 K/uL Sodium 141 (136-148) mmol/L Potassium 3.8 (3.5-5.1) mmol/L Chloride 106 (98-107) mmol/L Carbon Dioxide 25.2 (21.0-32.0) mmol/L BUN 17 (7.0-18.0) mg/dL Creatinine 0.9 (0.8-1.3) mg/dL Est Cr Clr Drug Dosing 92.38 mL/min Estimated GFR (MDRD) > 60.0 ml/min Glucose 108 H (74-106) mg/dL Calcium 8.2 L (8.5-10.1) mg/dL Phosphorus 3.5 (2.6-4.7) mg/dL Magnesium 1.4 L (1.8-2.4) mg/dL Total Bilirubin 0.3 (0.2-1.0) mg/dL AST 135 H (15-37) IU/L ALT 169 H (14-63) IU/L Alkaline Phosphatase 86 (46-116) U/L Creatine Kinase 1794 H (26-308) U/L Total Protein 5.7 L (6.4-8.2) g/dL Albumin 2.5 L (3.4-5.0) g/dL Globulin 3.2 (2.6-4.0) g/dL Albumin/Globulin Ratio 0.8 L (0.9-1.6) FRANSISCO Results - Last 24 hrs: Microbiology 10/10/20 22:08 Aerobic Blood Culture - Preliminary Blood - Venous - Lab Draw NO GROWTH AFTER 1 DAY Anaerobic Blood Culture - Preliminary NO GROWTH AFTER 1 DAY 10/10/20 21:57 Aerobic Blood Culture - Preliminary Blood - Venous NO GROWTH AFTER 1 DAY Anaerobic Blood Culture - Preliminary NO GROWTH AFTER 1 DAY Med Orders - Current: Current Medications Acetaminophen (Acetaminophen 325 Mg Tab) 650 mg PO Q4H PRN PRN Reason: Pain (Mild 1-3)/fever Amlodipine Besylate (Amlodipine 5 Mg Tab) 5 mg PO DAILY [facility] Last Admin: 10/12/20 08:43 Dose: 5 mg Documented by: Aspirin (Aspirin 81 Mg Tab.Ec) 81 mg PO DAILY [facility] Last Admin: 10/12/20 08:42 Dose: 81 mg Documented by: Docusate Sodium (Docusate Sodium 100 Mg Cap) 100 mg PO BID PRN PRN Reason: Constipation Folic Acid (Folic Acid 1 Mg Tab) 1 mg PO DAILY [facility] Last Admin: 10/12/20 08:43 Dose: 1 mg Documented by: Pantoprazole Sodium 40 mg/ (Sodium Chloride) 10 mls @ 300 mls/hr IV DAILY [facility] Last Admin: 10/12/20 09:20 Dose: 300 mls/hr Documented by: Lactated Ringer's (Ringers, Lactated) 1,000 mls @ 200 mls/hr IV ASDIRECTED [facility] Last Admin: 10/12/20 03:56 Dose: 200 mls/hr Documented by: Lorazepam (Lorazepam 2 Mg/Ml Sdv) 0 mg IVPUSH Q4H PRN; Protocol PRN Reason: Withdrawal Symptoms Losartan Potassium (Losartan 50 Mg Tab) 100 mg PO DAILY [facility] Last Admin: 10/12/20 08:43 Dose: 100 mg Documented by: Metoprolol Succinate (Metoprolol Succinate 25 Mg Tab.Er) 25 mg PO DAILY [facility] Last Admin: 10/12/20 08:40 Dose: 25 mg Documented by: Nicotine (Nicotine 14 Mg/24 Hr Patch) 14 mg TRDERM DAILY [facility] Last Admin: 10/12/20 09:55 Dose: 14 mg Documented by: Nitroglycerin (Nitroglycerin 0.4 Mg Tab.Sl) 0.4 mg SL ASDIRECTED [facility] Ondansetron HCl (Ondansetron 4 Mg Tab.Dis) 4 mg PO Q4H PRN PRN Reason: nausea, able to take PO Sodium Chloride (Sodium Chloride 0.9% 2.5 Ml Syringe) 2.5 ml FLUSH ASDIRECTED PRN PRN Reason: Keep Vein Open Thiamine HCl (Thiamine 100 Mg Tab) 100 mg PO BEDTIME [facility] Last Admin: 10/11/20 20:17 Dose: 100 mg Documented by: Discontinued Medications Atorvastatin Calcium (Atorvastatin 40 Mg Tab) 80 mg PO DAILY [facility] Last Admin: 10/11/20 09:13 Dose: Not Given Documented by: Folic Acid (Folic Acid 50 Mg/10 Ml Mdv) 1 mg IV DAILY [facility] Last Admin: 10/10/20 14:22 Dose: 1 mg Documented by: Thiamine HCl 100 mg/ Sodium (Chloride) 101 mls @ 202 mls/hr IV ONETIME ONE Stop: 10/10/20 13:16 Last Admin: 10/10/20 14:19 Dose: Not Given Documented by: Magnesium Sulfate (Magnesium Sulfate In Water 2 Gm/50 Ml) 1 gm in 25 mls @ 25 mls/hr IV ONETIME ONE Stop: 10/10/20 15:59 Last Admin: 10/10/20 15:18 Dose: 25 mls/hr Documented by: Sodium Chloride (Normal Saline) 1,000 mls @ 1,000 mls/hr IV .Bolus ONE Stop: 10/10/20 16:02 Last Admin: 10/10/20 15:18 Dose: 1,000 mls/hr Documented by: Sodium Chloride (Normal Saline) 1,000 mls @ 1,000 mls/hr IV .Bolus ONE Stop: 10/10/20 18:30 Last Admin: 10/10/20 17:40 Dose: 1,000 mls/hr Documented by: Magnesium Sulfate 2 gm/ Premix 50 mls @ 12.5 mls/hr IV ONETIME ONE Stop: 10/11/20 12:14 Last Admin: 10/11/20 09:00 Dose: 12.5 mls/hr Documented by: Magnesium Sulfate 4 gm/ Premix 100 mls @ 33.333 mls/hr IV ONETIME ONE Stop: 10/12/20 13:41 Last Admin: 10/12/20 10:59 Dose: 33.333 mls/hr Documented by: Potassium Chloride (Potassium Chloride 10% 20 Meq/15 Ml Soln 30 Ml Ud Cup) 80 meq PO ONETIME ONE Stop: 10/10/20 14:46 Last Admin: 10/10/20 15:20 Dose: 80 meq Documented by: Thiamine HCl (Thiamine 200 Mg/2 Ml Mdv) 100 mg IVPUSH ONETIME ONE Stop: 10/10/20 13:46 Last Admin: 10/10/20 14:22 Dose: 100 mg Documented by: Thiamine HCl (Thiamine 100 Mg Tab) 100 mg PO BEDTIME [facility] <Ethel Parry - Last Filed: 10/13/20 11:31> Discharge Summary - Referral to Home Health Primary Care Physician: Tobin Vu MD - Discharge Summary/Plan Comment Discharge Summary/Plan Comment: I have seen and evaluated the patient and agree with the residents note unless specified in my note - Patient Data Vitals - Most Recent: Last Vital Signs Temp 36.1 C 10/12/20 11:52 Pulse 71 10/12/20 11:52 Resp 18 10/12/20 11:52 BP 156/85 H 10/12/20 11:52 Pulse Ox 100 10/12/20 11:52 FRANSISCO Results - Last 24 hrs: Microbiology 10/10/20 22:08 Aerobic Blood Culture - Preliminary Blood - Venous - Lab Draw NO GROWTH AFTER 2 DAYS Anaerobic Blood Culture - Preliminary NO GROWTH AFTER 2 DAYS 10/10/20 21:57 Aerobic Blood Culture - Preliminary Blood - Venous NO GROWTH AFTER 2 DAYS Anaerobic Blood Culture - Preliminary NO GROWTH AFTER 2 DAYS Med Orders - Current: Current Medications Discontinued Medications Acetaminophen (Acetaminophen 325 Mg Tab) 650 mg PO Q4H PRN PRN Reason: Pain (Mild 1-3)/fever Amlodipine Besylate (Amlodipine 5 Mg Tab) 5 mg PO DAILY [facility] Last Admin: 10/12/20 08:43 Dose: 5 mg Documented by: Aspirin (Aspirin 81 Mg Tab.Ec) 81 mg PO DAILY [facility] Last Admin: 10/12/20 08:42 Dose: 81 mg Documented by: Atorvastatin Calcium (Atorvastatin 40 Mg Tab) 80 mg PO DAILY [facility] Last Admin: 10/11/20 09:13 Dose: Not Given Documented by: Docusate Sodium (Docusate Sodium 100 Mg Cap) 100 mg PO BID PRN PRN Reason: Constipation Folic Acid (Folic Acid 50 Mg/10 Ml Mdv) 1 mg IV DAILY [facility] Last Admin: 10/10/20 14:22 Dose: 1 mg Documented by: Folic Acid (Folic Acid 1 Mg Tab) 1 mg PO DAILY [facility] Last Admin: 10/12/20 08:43 Dose: 1 mg Documented by: Thiamine HCl 100 mg/ Sodium (Chloride) 101 mls @ 202 mls/hr IV ONETIME ONE Stop: 10/10/20 13:16 Last Admin: 10/10/20 14:19 Dose: Not Given Documented by: Magnesium Sulfate (Magnesium Sulfate In Water 2 Gm/50 Ml) 1 gm in 25 mls @ 25 mls/hr IV ONETIME ONE Stop: 10/10/20 15:59 Last Admin: 10/10/20 15:18 Dose: 25 mls/hr Documented by: Sodium Chloride (Normal Saline) 1,000 mls @ 1,000 mls/hr IV .Bolus ONE Stop: 10/10/20 16:02 Last Admin: 10/10/20 15:18 Dose: 1,000 mls/hr Documented by: Sodium Chloride (Normal Saline) 1,000 mls @ 1,000 mls/hr IV .Bolus ONE Stop: 10/10/20 18:30 Last Admin: 10/10/20 17:40 Dose: 1,000 mls/hr Documented by: Pantoprazole Sodium 40 mg/ (Sodium Chloride) 10 mls @ 300 mls/hr IV DAILY [facility] Last Admin: 10/12/20 09:20 Dose: 300 mls/hr Documented by: Lactated Ringer's (Ringers, Lactated) 1,000 mls @ 200 mls/hr IV ASDIRECTED [facility] Last Admin: 10/12/20 03:56 Dose: 200 mls/hr Documented by: Magnesium Sulfate 2 gm/ Premix 50 mls @ 12.5 mls/hr IV ONETIME ONE Stop: 10/11/20 12:14 Last Admin: 10/11/20 09:00 Dose: 12.5 mls/hr Documented by: Magnesium Sulfate 4 gm/ Premix 100 mls @ 33.333 mls/hr IV ONETIME ONE Stop: 10/12/20 13:41 Last Admin: 10/12/20 10:59 Dose: 33.333 mls/hr Documented by: Lorazepam (Lorazepam 2 Mg/Ml Sdv) 0 mg IVPUSH Q4H PRN; Protocol PRN Reason: Withdrawal Symptoms Losartan Potassium (Losartan 50 Mg Tab) 100 mg PO DAILY [facility] Last Admin: 10/12/20 08:43 Dose: 100 mg Documented by: Metoprolol Succinate (Metoprolol Succinate 25 Mg Tab.Er) 25 mg PO DAILY [facility] Last Admin: 10/12/20 08:40 Dose: 25 mg Documented by: Nicotine (Nicotine 14 Mg/24 Hr Patch) 14 mg TRDERM DAILY [facility] Last Admin: 10/12/20 09:55 Dose: 14 mg Documented by: Nitroglycerin (Nitroglycerin 0.4 Mg Tab.Sl) 0.4 mg SL ASDIRECTED [facility] Ondansetron HCl (Ondansetron 4 Mg Tab.Dis) 4 mg PO Q4H PRN PRN Reason: nausea, able to take PO Potassium Chloride (Potassium Chloride 10% 20 Meq/15 Ml Soln 30 Ml Ud Cup) 80 meq PO ONETIME ONE Stop: 10/10/20 14:46 Last Admin: 10/10/20 15:20 Dose: 80 meq Documented by: Sodium Chloride (Sodium Chloride 0.9% 2.5 Ml Syringe) 2.5 ml FLUSH ASDIRECTED PRN PRN Reason: Keep Vein Open Thiamine HCl (Thiamine 200 Mg/2 Ml Mdv) 100 mg IVPUSH ONETIME ONE Stop: 10/10/20 13:46 Last Admin: 10/10/20 14:22 Dose: 100 mg Documented by: Thiamine HCl (Thiamine 100 Mg Tab) 100 mg PO BEDTIME [facility] Thiamine HCl (Thiamine 100 Mg Tab) 100 mg PO BEDTIME [facility] Last Admin: 10/11/20 20:17 Dose: 100 mg Documented by:
== END 2020-10-12 14:22 | disposition home or self-care (01) ==
LOC: MW.ED 12:09 → MW.MS 17:43
PROVIDERS: ADMIT Student in an Organized Health Care Education/Training Program; ATTEND Student in an Organized Health Care Education/Training Program
DX: E51.2 Wernicke's encephalopathy (principal); M62.82 Rhabdomyolysis; I10 Essential (primary) hypertension; E78.5 Hyperlipidemia, unspecified; F10.231 Alcohol dependence with withdrawal delirium; R74.01 Elevation of levels of liver transaminase levels; F17.210 Nicotine dependence, cigarettes, uncomplicated; E87.6 Hypokalemia; E83.42 Hypomagnesemia; Z79.82 Long term (current) use of aspirin; Z79.899 Other long term (current) drug therapy
CPT/HCPCS: 36415; 70450; 80053; 80307; 82140; 82550; 83690; 83735; 84100; 84484; 85025; 87040; 93005; 96365; 96375; 99284; A9270; C9113; J3411; J3475; J7030; J7120; 93010; 96366; 96376; 99223; 99233; 99238; G0378

== ENCOUNTER 2020-10-19 11:15 | Emergency (ER) | payer SELFPAY ==
[2020-10-19 12:44] LABS: ACETAMINOPHEN <2.0 ug/mL; BLOOD UREA NITROGEN,BUN 13 mg/dL (7.0-18.0); CARBON DIOXIDE,CO2 27.2 mmol/L (21.0-32.0); CHLORIDE,CL 101 mmol/L (98-107); GLUCOSE RANDOM 102 mg/dL (74-106); SODIUM,NA 140 mmol/L (136-148)
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
== END 2020-10-19 13:30 ==
LOC: MW.ED 11:15
DX: F10.20 Alcohol dependence, uncomplicated (principal); E78.00 Pure hypercholesterolemia, unspecified; I10 Essential (primary) hypertension; Z79.82 Long term (current) use of aspirin; Z79.899 Other long term (current) drug therapy
CPT/HCPCS: 36415; 80053; 80143; 80179; 80305-QW; 80307; 81001; 83735; 85025; 93005; 93010; 99283-25; 99284

== ENCOUNTER 2021-05-24 16:54 | Emergency (ER) | payer MEDICAID, SELFPAY ==
[2021-05-24] MEDS ORDERED: LORazepam 2 MG/ML SDV IVPUSH ONE (17:06)
[2021-05-24] MEDS ORDERED: Ondansetron 4 MG/2 ML SDV IVPUSH ONE (17:08)
[2021-05-24] MEDS ORDERED: Labetalol 100 MG/20 ML MDV IVPUSH ONE ×2 (17:11→17:54)
[2021-05-24] MEDS ORDERED: Labetalol 100 MG/20 ML MDV ONE (17:12)
[2021-05-24] MEDS ORDERED: Iopamidol 755 MG/ML 500 ML Multipack Bottle IVPUSH STA (17:43)
[2021-05-24 17:56] LABS: BLOOD UREA NITROGEN,BUN 15 mg/dL (7.0-18.0); CARBON DIOXIDE,CO2 23.6 mmol/L (21.0-32.0); CHLORIDE,CL 98 mmol/L (98-107); GLUCOSE RANDOM 172 mg/dL (74-106); POTASSIUM,K 3.4 mmol/L (3.5-5.1); SODIUM,NA 138 mmol/L (136-148)
[2021-05-24] MEDS ORDERED: niCARdipine/Normal Saline 20 MG/200 ML BAG IV SCH (18:00)
[2021-05-24] MEDS ORDERED: ALTEPLASE IV STA (18:40)
[2021-05-24] MEDS ORDERED: Alteplase 2 MG Vial IVPUSH ONE (18:40)
[2021-05-24] MEDS ORDERED: INFUSION IV STA (18:40)
== END 2021-05-24 19:50 ==
LOC: MW.ED 16:54
DX: I69.320 Aphasia following cerebral infarction (principal); R56.9 Unspecified convulsions; E78.00 Pure hypercholesterolemia, unspecified; I10 Essential (primary) hypertension; Z79.82 Long term (current) use of aspirin; Z79.899 Other long term (current) drug therapy; Z20.822 Contact with and (suspected) exposure to COVID-19
CPT/HCPCS: 36415; 37195; 70450; 70496; 70498; 71045; 80053; 80305; 80307; 82947; 83735; 84443; 84484; 85025; 85610; 85730; 87635; 93005; 96374; 96375; 96376; 99285; J2060; J2405; J2997; J3490; Q9967; U0002